=== PATIENT | male | born 1960 | race Caucasian/White ===

== ENCOUNTER 2024-09-29 17:21 | Inpatient (IN) | payer SELFPAY ==
[2024-09-29 17:22] VITALS: BMI 25.8
--- NOTE | 2024-09-29 17:26 | XRR_ITS ---
PROCEDURE INFORMATION: Exam: XR Chest Exam date and time: 09/29/2024 5:51 PM Age: 64 years old Clinical indication: Shortness of breath TECHNIQUE: Imaging protocol: Radiologic exam of the chest. Views: 1 view. COMPARISON: No relevant prior studies available. FINDINGS: Lungs: There is a vague area of increased density projecting over the left lung base partially silhouetting the left heart border. This demonstrates angular margins and could potentially be external to the patient. The right lung is clear. Pleural spaces: There is slight blunting of the left costophrenic angle which could represent a tiny left pleural effusion. Heart/Mediastinum: The cardiomediastinal silhouette appears normal in size. There is partial silhouetting of the left heart border as described above. Bones/joints: Intact. There are degenerative changes involving the thoracic spine. Other findings: None. XR/XR chest 1V portable [id number] IMPRESSION: 1. Vague area of increased density projecting over the left lung base demonstrating angular margins. This could potentially be external to the patient. A left basilar infiltrate or mass can not be excluded. Follow-up PA and lateral radiographs may be helpful for further evaluation. 2. Slight blunting of the left costophrenic angle which could represent a tiny left pleural effusion.
--- NOTE | 2024-09-29 17:27 | ECG_ITS ---
[facility] Test Date: 2024-09-29 Pat Name: Jean Chambers Department: Room: Gender: Male Sausage Wrapper: : 1960 Requested By: Silvia Banks Order Number: [id number] Martin MD: Dinesh Oconnor M.D. Measurements Intervals [place] Rate: 80 P: 67 [place]: 149 QRS: 1 QRSD: 93 T: 67 QT: 345 QTc: 400 Interpretive Statements SINUS RHYTHM WITH SINUS ARRHYTHMIA INCOMPLETE RIGHT BUNDLE BRANCH BLOCK [90+ ms QRS DURATION, TERMINAL R IN V1/V2, 40+ ms S IN I/aVL/V4/V5/V6] MODERATE ST DEPRESSION [0.05+ mV ST DEPRESSION] No previous ECG available for comparison Electronically Signed On 10-01-2024 22:02:29 SEARCH ENGINEER by Dinesh Oconnor M.D. [id number]
--- NOTE | 2024-09-29 17:27 | W.ED.SOB ---
Documented by User: Silvia Villalobos MD 09/30/24 11:57 HPI - SOB/Dyspnea General: Chief Complaint: Shortness of Breath/Dyspnea Stated Complaint: SOB Time Seen by Provider: 09/29/24 17:25 History of Present Illness: HPI Narrative: 64-year-old man with a history of hypertension and tobacco dependence who presents emergency room shortness of breath. He says he does not have a diagnosis of COPD. He says he has been sick for about 2 days now. No fevers. No chest pain. No lower extremity swelling. No altered mental status. EMS reports his O2 sats were in the 70s when they arrived. He is now on 4 L nasal cannula and has not on oxygen at home. He is had increased cough. No abdominal pain. No nausea or vomiting. Related Data Home Medications ?Medication ?Instructions ?Recorded ?Confirmed No Known Home Medications 09/30/24 09/30/24 Allergies Allergy/AdvReac Type Severity Reaction Status Date / Time No Known Allergies Allergy Verified 09/29/24 17:39 Review of Systems Narrative: Constitutional symptoms: Negative except as documented in HPI. Skin symptoms: Negative except as documented in HPI. Eye symptoms: Negative except as documented in HPI. ENMT symptoms: Negative except as documented in HPI. Respiratory symptoms: Negative except as documented in HPI. Cardiovascular symptoms: Negative except as documented in HPI. Gastrointestinal symptoms: Negative except as documented in HPI. Genitourinary symptoms: Negative except as documented in HPI. Musculoskeletal symptoms: Negative except as documented in HPI. Neurologic symptoms: Negative except as documented in HPI. Psychiatric symptoms: Negative except as documented in HPI. Endocrine symptoms: Negative except as documented in HPI. PFSH ED PFSH: Medical History Hypertension Social History Smoking and tobacco/nicotine status: current some day tobacco/nicotine user cigarettes Number of cigarettes per day: >20 Alcohol intake: current Alcohol intake frequency: 3 or more drinks per day Alcohol type: hard liquor Physical Exam Narrative: EXAM NARRATIVE: General: Alert, moderate distress. Skin: Warm, dry. Head: Normocephalic, atraumatic. Neck: Supple, trachea midline. Eye: Extraocular movements are intact. Ears, nose, mouth and throat: Oral mucosa moist. Cardiovascular: Regular rate and rhythm, Normal peripheral perfusion. Respiratory: coarse, scattered wheeze, moderate increased wob. tachypnea, prolonged expiratory phase. breath sounds are equal, Symmetrical chest wall expansion. Gastrointestinal: Soft, Nontender, Non distended, Normal bowel sounds. Musculoskeletal: Normal ROM, no deformity. Neurological: Alert and oriented to person, place, time, and situation, No focal neurological deficit observed. Psychiatric: Cooperative, appropriate mood & affect. Course Vital Signs: Vital signs: Vital Signs Temperature 97.7 F 09/30/24 11:19 Pulse Rate 67 09/30/24 11:19 Respiratory Rate 16 09/30/24 11:19 Blood Pressure 162/87 09/30/24 11:19 Pulse Oximetry 97 09/30/24 11:19 Oxygen Delivery Me thod Nasal Cannula 09/30/24 11:19 Oxygen Flow Rate 4 09/30/24 11:19 MDM - SOB/Dyspnea Medical Decision Making EKG: Time 1728. Rate 80. Normal sinus rhythm, nonspecific ST depression, incomplete right bundle branch block. No ectopy. This was reviewed and interpreted by myself the ER physician at 1731 Patient care transitioned to Dr. Solares at shift change. Lab Data 09/30/24 05:22 09/30/24 05:22 Labs/Radiology: Radiology Impressions Chest X-Ray 09/29/24 17:26 IMPRESSION: 1. Vague area of increased density projecting over the left lung base demonstrating angular margins. This could potentially be external to the patient. A left basilar infiltrate or mass can not be excluded. Follow-up PA and lateral radiographs may be helpful for further evaluation. 2. Slight blunting of the left costophrenic angle which could represent a tiny left pleural effusion. Laboratory Results WBC 11.83 10^3/uL (3.29-11.43) H 09/29/24 17:42 RBC 4.73 10^6/uL (3.85-5.65) 09/29/24 17:42 Hgb 15.60 g/dL (11.27-16.99) 09/29/24 17:42 Hct 45.9 % (37-53) 09/29/24 17:42 MCV 97.0 fl (82-101) 09/29/24 17:42 MCH 33.0 pg (27-33) 09/29/24 17:42 MCHC 34.0 g/dL (30-55) 09/29/24 17:42 RDW 13.0 % (12.1-15.1) 09/29/24 17:42 Plt Count 216 10^3/cmm (157-399) 09/29/24 17:42 MPV 10.3 fL (7.4-10.4) 09/29/24 17:42 Neut % (Auto) 92.7 % 09/29/24 17:42 Lymph % (Auto) 3.2 % 09/29/24 17:42 Evangeline % (Auto) 3.5 % 09/29/24 17:42 Eos % (Auto) 0.0 % 09/29/24 17:42 Baso % (Auto) 0.2 % 09/29/24 17:42 Neut # (Auto) 10.97 10^3/uL (1.8-7.7) H 09/29/24 17:42 Lymph # (Auto) 0.4 10^3/uL (0.8-4.8) L 09/29/24 17:42 Evangeline # (Auto) 0.4 10^3/uL (0.2-0.9) 09/29/24 17:42 Eos # (Auto) 0.0 10^3/uL (0.0-0.8) 09/29/24 17:42 Baso # (Auto) 0.0 10^3/uL (0.0-0.1) 09/29/24 17: Nucleated RBC % (auto) 0 % 09/29/24 17: Nucleated RBCs # 0.0 /100WBC 09/29/24 17:42 Specimen Type Arterial 09/29/24 17:28 Sample Site Radial, left 09/29/24 17:28 ABG pH 7.34 (7.35-7.45) L 09/29/24 17:28 ABG pCO2 47.9 mmHg (35-45) H 09/29/24 17:28 ABG pO2 69.4 mmHg (80.0-100.0) L 09/29/24 17:28 ABG HCO3 25.7 mmol/L (22-26) 09/29/24 17:28 ABG O2 Saturation 95.1 09/29/24 17:28 ABG Base Excess -0.8 mmol/L (-2.0-2.0) 09/29/24 17:28 Willam Test Pos 09/29/24 17:28 A-a O2 Gradient 2.9 mmHg (5-10) L 09/29/24 17:28 Hematocrit 48.8 % (42-52) 09/29/24 17:28 Hgb O2 Saturation 92.5 % (95-100) L 09/29/24 17:28 Carboxyhemoglobin 1.8 %THgb (0.4-20.1) 09/29/24 17:28 Methemoglobin 0.9 % (0.4-1.5) 09/29/24 17:28 Total Hemoglobin 15.9 g/dL (14-18) 09/29/24 17:28 Sodium 136.0 mmol/L (131-143) 09/29/24 17:28 Potassium 4.2 mmol/L (3.5-5.0) 09/29/24 17:28 Glucose 142.0 mg/dL (70-115) H 09/29/24 17:28 Ionized Calcium 1.2 mmol/L (1.1-1.4) 09/29/24 17:28 O2 Delivery Device Nc 09/29/24 17:28 O2 Liters/Min 4.0 % 09/29/24 17:28 Manager Administrative Services ID Walci 09/29/24 17:28 Sodium 135 mmol/L (136-145) L 09/29/24 17:42 Potassium 4.5 mmol/L (3.5-5.1) 09/29/24 17:42 Chloride 96 mmol/L (98-107) L 09/29/24 17:42 Carbon Dioxide 25 mmol/L (22-29) 09/29/24 17:42 Anion Gap 18.5 (5-19) 09/29/24 17:42 BUN 16 mg/dL (8-23) 09/29/24 17:42 Creatinine 1.0 mg/dL (0.7-1.2) 09/29/24 17:42 GFR Calculation 74.8 mL/min (90-130) L 09/29/24 17:42 Glucose 134 mg/dL (65-115) H 09/29/24 17:42 Estimat Average Glucose 100 09/29/24 17:42 Hemoglobin A1c 5.1 % (4.0-6.0) 09/29/24 17:42 Calculated Osmolality 283 mOsm/kg (285-295) L 09/29/24 17:42 Lactic Acid 2.4 mmol/L (0.5-2.2) H 09/29/24 17:42 Calcium 9.6 mg/dL (8.5-10.5) 09/29/24 17:42 Total Bilirubin 0.6 mg/dL (0.15-1.2) 09/29/24 17:42 AST 44 U/L (0-40) H 09/29/24 17:42 ALT 38 U/L (0-41) 09/29/24 17:42 Alkaline Phosphatase 79 U/L (40-130) 09/29/24 17:42 Troponin T Baseline 24 ng/L (0-15) H 09/29/24 17:42 Troponin T 120 Minute 28.68 ng/L (0-15) H 09/29/24 19:53 Delta Troponin T 4.68 ABS# (0-10) 09/29/24 19:53 NT-Pro-B Natriuret Pep 2330 pg/mL (0-125) H 09/29/24 17:42 Total Protein 7.5 g/dL (6.6-8.7) 09/29/24 17:42 Albumin 4.4 g/dL (3.5-5.2) 09/29/24 17:42 Globulin 3.1 g/dL (1.3-4.6) 09/29/24 17:42 Procalcitonin 0.20 ng/mL (0-0.5) 09/29/24 19:53 Coronavirus (PCR) Negative (Negative) 09/29/24 18:03 Influenza A (PCR) Positive (Negative) 09/29/24 18:03 Influenza Type B (PCR) Negative (Negative) 09/29/24 18:03 RSV (PCR) Negative (Negative) 09/29/24 18:03 All radiology interpretation(s) finalized by discharge Discharge Plan Discharge Patient Disposition: Admitted As Inpatient Admit Provider: Eliot Johnson Clinical Impression: Acute hypoxemic respiratory failure, Influenza A Condition: Stable Coding Level of Care Code ED Bridge Attacher for Chg Fwd Documented by User: Jag Solares DO 09/29/24 20:14 HPI - SOB/Dyspnea General: Chief Complaint: Shortness of Breath/Dyspnea Stated Complaint: SOB Time Seen by Provider: 09/29/24 17:25 Related Data Home Medications ?Medication ?Instructions ?Recorded ?Confirmed No Known Home Medications 09/30/24 09/30/24 Allergies Allergy/AdvReac Type Severity Reaction Status Date / Time No Known Allergies Allergy Verified 09/29/24 17:39 PFSH ED PFSH: Medical History Hypertension Social History Smoking and tobacco/nicotine status: current some day tobacco/nicotine user cigarettes Number of cigarettes per day: >20 Alcohol intake: current Alcohol intake frequency: 3 or more drinks per day Alcohol type: hard liquor Course Vital Signs: Vital signs: Vital Signs Temperature 97.7 F 09/30/24 11:19 Pulse Rate 67 09/30/24 11:19 Respiratory Rate 16 09/30/24 11:19 Blood Pressure 162/87 09/30/24 11:19 Pulse Oximetry 97 09/30/24 11:19 Oxygen Delivery Me thod Nasal Cannula 09/30/24 11:19 Oxygen Flow Rate 4 09/30/24 11:19 MDM - SOB/Dyspnea Medical Decision Making EKG: Time 1728. Rate 80. Normal sinus rhythm, nonspecific ST depression, incomplete right bundle branch block. No ectopy. This was reviewed and interpreted by myself the ER physician at 1731 Patient care transitioned to Dr. Solares at shift change. Care transferred over myself at shift change, patient came back influenza A positive, chest x-ray showed increased density in the left lung base possible infiltrate or mass, patient still requiring 4 L of oxygen. Discussed these results with the patient and Dr. Vuong. Will place patient inpatient for further evaluation treatment. Lab Data 09/30/24 05:22 09/30/24 05:22 Labs/Radiology: Radiology Impressions Chest X-Ray 09/29/24 17:26 IMPRESSION: 1. Vague area of increased density projecting over the left lung base demonstrating angular margins. This could potentially be external to the patient. A left basilar infiltrate or mass can not be excluded. Follow-up PA and lateral radiographs may be helpful for further evaluation. 2. Slight blunting of the left costophrenic angle which could represent a tiny left pleural effusion. Laboratory Results WBC 11.83 10^3/uL (3.29-11.43) H 09/29/24 17:42 RBC 4.73 10^6/uL (3.85-5.65) 09/29/24 17:42 Hgb 15.60 g/dL (11.27-16.99) 09/29/24 17:42 Hct 45.9 % (37-53) 09/29/24 17:42 MCV 97.0 fl (82-101) 09/29/24 17:42 MCH 33.0 pg (27-33) 09/29/24 17:42 MCHC 34.0 g/dL (30-55) 09/29/24 17:42 RDW 13.0 % (12.1-15.1) 09/29/24 17:42 Plt Count 216 10^3/cmm (157-399) 09/29/24 17:42 MPV 10.3 fL (7.4-10.4) 09/29/24 17:42 Neut % (Auto) 92.7 % 09/29/24 17:42 Lymph % (Auto) 3.2 % 09/29/24 17:42 Evangeline % (Auto) 3.5 % 09/29/24 17:42 Eos % (Auto) 0.0 % 09/29/24 17:42 Baso % (Auto) 0.2 % 09/29/24 17:42 Neut # (Auto) 10.97 10^3/uL (1.8-7.7) H 09/29/24 17:42 Lymph # (Auto) 0.4 10^3/uL (0.8-4.8) L 09/29/24 17:42 Evangeline # (Auto) 0.4 10^3/uL (0.2-0.9) 09/29/24 17:42 Eos # (Auto) 0.0 10^3/uL (0.0-0.8) 09/29/24 17:42 Baso # (Auto) 0.0 10^3/uL (0.0-0.1) 09/29/24 17:42 Nucleated RBC % (auto) 0 % 09/29/24 17:42 Nucleated RBCs # 0.0 /100WBC 09/29/24 17:42 Specimen Type Arterial 09/29/24 17:28 Sample Site Radial, left 09/29/24 17:28 ABG pH 7.34 (7.35-7.45) L 09/29/24 17: ABG pCO2 47.9 mmHg (35-45) H 09/29/24 17: ABG pO2 69.4 mmHg (80.0-100.0) L 09/29/24 17: ABG HCO3 25.7 mmol/L (22-26) 09/29/24 17: ABG O2 Saturation 95.1 09/29/24 17: ABG Base Excess -0.8 mmol/L (-2.0-2.0) 09/29/24 17:28 Willam Test Pos 09/29/24 17:28 A-a O2 Gradient 2.9 mmHg (5-10) L 09/29/24 17:28 Hematocrit 48.8 % (42-52) 09/29/24 17:28 Hgb O2 Saturation 92.5 % (95-100) L 09/29/24 17:28 Carboxyhemoglobin 1.8 %THgb (0.4-20.1) 09/29/24 17:28 Methemoglobin 0.9 % (0.4-1.5) 09/29/24 17:28 Total Hemoglobin 15.9 g/dL (14-18) 09/29/24 17:28 Sodium 136.0 mmol/L (131-143) 09/29/24 17:28 Potassium 4.2 mmol/L (3.5-5.0) 09/29/24 17:28 Glucose 142.0 mg/dL (70-115) H 09/29/24 17:28 Ionized Calcium 1.2 mmol/L (1.1-1.4) 09/29/24 17: O2 Delivery Device Nc 09/29/24 17:28 O2 Liters/Min 4.0 % 09/29/24 17:28 Manager Administrative Services ID Walci 09/29/24 17:28 Sodium 135 mmol/L (136-145) L 09/29/24 17:42 Potassium 4.5 mmol/L (3.5-5.1) 09/29/24 17:42 Chloride 96 mmol/L (98-107) L 09/29/24 17:42 Carbon Dioxide 25 mmol/L (22-29) 09/29/24 17:42 Anion Gap 18.5 (5-19) 09/29/24 17:42 BUN 16 mg/dL (8-23) 09/29/24 17:42 Creatinine 1.0 mg/dL (0.7-1.2) 09/29/24 17:42 GFR Calculation 74.8 mL/min (90-130) L 09/29/24 17:42 Glucose 134 mg/dL (65-115) H 09/29/24 17:42 Estimat Average Glucose 100 09/29/24 17:42 Hemoglobin A1c 5.1 % (4.0-6.0) 09/29/24 17:42 Calculated Osmolality 283 mOsm/kg (285-295) L 09/29/24 17:42 Lactic Acid 2.4 mmol/L (0.5-2.2) H 09/29/24 17:42 Calcium 9.6 mg/dL (8.5-10.5) 09/29/24 17:42 Total Bilirubin 0.6 mg/dL (0.15-1.2) 09/29/24 17:42 AST 44 U/L (0-40) H 09/29/24 17:42 ALT 38 U/L (0-41) 09/29/24 17:42 Alkaline Phosphatase 79 U/L (40-130) 09/29/24 17:42 Troponin T Baseline 24 ng/L (0-15) H 09/29/24 17:42 Troponin T 120 Minute 28.68 ng/L (0-15) H 09/29/24 19:53 Delta Troponin T 4.68 ABS# (0-10) 09/29/24 19:53 NT-Pro-B Natriuret Pep 2330 pg/mL (0-125) H 09/29/24 17:42 Total Protein 7.5 g/dL (6.6-8.7) 09/29/24 17:42 Albumin 4.4 g/dL (3.5-5.2) 09/29/24 17:42 Globulin 3.1 g/dL (1.3-4.6) 09/29/24 17:42 Procalcitonin 0.20 ng/mL (0-0.5) 09/29/24 19:53 Coronavirus (PCR) Negative (Negative) 09/29/24 18:03 Influenza A (PCR) Positive (Negative) 09/29/24 18:03 Influenza Type B (PCR) Negative (Negative) 09/29/24 18:03 RSV (PCR) Negative (Negative) 09/29/24 18:03 Discharge Plan Discharge Patient Disposition: Admitted As Inpatient Admit Provider: Eliot Johnson Clinical Impression: Acute hypoxemic respiratory failure, Influenza A Condition: Stable Coding Level of Care Code ED Bridge Attacher for Hannah Samaniego
[2024-09-29 17:30] VITALS: BP 146/84; PULSE 94; RESP 28; TEMP 37.3; O2SAT 94
[2024-09-29 17:32] VITALS: PULSE 78; RESP 20; O2SAT 93
[2024-09-29 17:39] LABS: ABG PCO2 47.9 mmHg (35-45); ABG PH Result 7.34 (7.35-7.45); Alveolar-Arterial Oxygen Gradi 2.9 mmHg (5-10); Arterial Blood Gas Hematocrit 48.8 % (42-52); Base Excess ABG -0.8 mmol/L (-2.0-2.0); Blood Gas Allen Test Pos; Blood Gas Sample Type Arterial; Carboxyhemoglobin 1.8 %THgb (0.4-20.1); HCO3 ABG 25.7 mmol/L (22-26); HGB O2 Sat 92.5 % (95-100); Ionized Calcium Level - ABG 1.2 mmol/L (1.1-1.4); Methemoglobin 0.9 % (0.4-1.5); Oxygen Saturation ABG 95.1; PO2 ABG 69.4 mmHg (80.0-100.0); Potassium Level - ABG 4.2 mmol/L (3.5-5.0); Total Hemoglobin 15.9 g/dL (14-18)
[2024-09-29 17:40] LABS: Blood Gas Operator Identificat WALCI; Blood Gas Sample Site Radial, left; Oxygen Device NC
[2024-09-29] MEDS: ipratropium-albuterol 3 mL Neb INHALATION (17:45)
[2024-09-29] MEDS: albuterol 2.5 mg/3 mL Neb INHALATION (17:45)
[2024-09-29 17:48] VITALS: PULSE 76
[2024-09-29 17:53] LABS: Basophils % 0.2 %; Hematocrit 45.9 % (37-53); Lymphocytes # 0.4 10^3/uL (0.8-4.8); Lymphocytes % 3.2 %; Mean Platelet Volume 10.3 fL (7.4-10.4); Monocytes # 0.4 10^3/uL (0.2-0.9); Monocytes % 3.5 %; Neutrophils # 10.97 10^3/uL (1.8-7.7); Neutrophils % 92.7 %; Nucleated Red Blood Cells % 0 %; Platelet Count 216 10^3/cmm (157-399); Red Blood Count 4.73 10^6/uL (3.85-5.65); White Blood Count 11.83 10^3/uL (3.29-11.43)
[2024-09-29] MEDS: methylPREDNISolone sod succ 125 mg/2 mL INJ IVP (17:55)
[2024-09-29 18:11] LABS: Troponin(5th) Baseline 24 ng/L (0-15)
[2024-09-29 18:15] LABS: Lactic Sepsis W/Reflex 2.4 mmol/L (0.5-2.2)
[2024-09-29 18:29] LABS: Alanine Aminotransferase 38 U/L (0-41); Albumin Level 4.4 g/dL (3.5-5.2); Alkaline Phosphatase 79 U/L (40-130); Anion Gap 18.5 (5-19); Aspartate Amino Transferase 44 U/L (0-40); Blood Urea Nitrogen 16 mg/dL (8-23); Calcium 9.6 mg/dL (8.5-10.5); Carbon Dioxide 25 mmol/L (22-29); Chloride 96 mmol/L (98-107); Creatinine Clr Calc Pharmacy 73.8812; Globulin 3.1 g/dL (1.3-4.6); Glomerular Filtration Rate 74.8 mL/min (90-130); Glucose 134 mg/dL (65-115); NT Pro B Type Natriuretic Pept 2330 pg/mL (0-125); Osmolality Calculated 283 mOsm/kg (285-295); Potassium 4.5 mmol/L (3.5-5.1); Sodium 135 mmol/L (136-145); Total Bilirubin 0.6 mg/dL (0.15-1.2); Total Protein 7.5 g/dL (6.6-8.7)
[2024-09-29 18:30] VITALS: BP 133/67; PULSE 90; RESP 35; O2SAT 91
[2024-09-29 18:53] LABS: Influenza A POSITIVE (Negative); Influenza B NEGATIVE (Negative); Respiratory Syncytial Virus Ce NEGATIVE (Negative); SARS-CoV-2 PCR NEGATIVE (Negative)
[2024-09-29 19:00] VITALS: PULSE 92; O2SAT 91
[2024-09-29 19:36] LABS: Reflex Lactate Order REFLEX LACTIC ORDERD
[2024-09-29 20:26] LABS: Troponin 5 2HR 28.68 ng/L (0-15); Troponin 5 2HR Delta 4.68 ABS# (0-10)
--- NOTE | 2024-09-29 20:39 | ECG_ITS ---
[email or web address] Test Date: 2024-09-29 Pat Name: Jean Chambers Department: Room: Gender: Male Chief Data Officer: : 1960 Requested By: Silvia Banks Order Number: [id number] Martin MD: Dinesh Oconnor M.D. Measurements Intervals [place] Rate: 83 P: 24 MS: 134 QRS: 1 QRSD: 85 T: 51 QT: 347 QTc: 409 Interpretive Statements SINUS RHYTHM Compared to ECG 09/29/2024 17:28:38 Sinus arrhythmia no longer present Incomplete right bundle-branch block no longer present ST (T wave) deviation no longer present Electronically Signed On 10-01-2024 22:20:36 CASUALTY UNDERWRITER by Dinesh Oconnor M.D. [id number] [id number]
[2024-09-29] MEDS: piperacillin-tazobactam 3.375 GM in sodium chloride 0.9% (plus) 50 ML IV (20:43)
[2024-09-29] MEDS: ibuprofen 800 mg tablet PO (21:01)
--- NOTE | 2024-09-29 21:05 | P.HP_ITS ---
Providers/Chief Complaint 2 Chief Complaint: SOB History of Present Illness Jean Chambers is a 64 year old male without significant past medical history, does not follow-up with any PCP, takes atenolol for hypertension presented with chief complaint of worsening shortness of breath. Patient is stating that for last 2 weeks he has been extremely short of breath lethargic and fatigued, he does not use oxygen at baseline, smokes 2 packs per per day, drinks 3-4 shots of fireball every day, history of alcohol withdrawal, endorsing subjective fever no active chest pain, productive cough, endorsing diarrhea. Presented to the hospital for worsening of symptoms. In the ER patient is requiring 4 L. He has been diagnosed with influenza A, he has increased work of breathing. Chest x-ray consistent with possible left-sided infiltrate versus atelectasis. Procalcitonin unremarkable, he is afebrile. His BNP was high requested echo. Clinically patient does not look fluid overloaded. Lactic acid improved with gentle hydration of fluid. Review of Systems 2 Const: Reports: fever(s) and chills Eyes: Denies: change in vision ENMT: Denies: throat pain Card: Denies: chest pain Resp: Reports: dyspnea GI: Reports: nausea and diarrhea Medications/Allergies Allergies Allergy/AdvReac Type Severity Reaction Status Date / Time No Known Allergies Allergy Verified 09/29/24 17:39 PFSH Acute 2 PFSH: Medical History Hypertension Social History Smoking and tobacco/nicotine status: current some day tobacco/nicotine user cigarettes Number of cigarettes per day: >20 Alcohol intake: current Alcohol intake frequency: 3 or more drinks per day Alcohol type: hard liquor Vitals/I&O/Wt Last Vital Signs Temp 99.2 F 09/29/24 17:30 Pulse 92 09/29/24 19:00 Resp 35 H 09/29/24 18:30 BP 133/67 09/29/24 18:30 Pulse Ox 91 09/29/24 19:00 O2 Del Method Nasal Cannula 09/29/24 19:00 O2 Flow Rate 4 09/29/24 19:00 Weight last 48 hrs Weight 77.111 kg Physical Exam 2 Narrative: Patient currently on 4 L nasal cannula Normotensive Clinically does not look fluid overloaded Mild rhonchi bilaterally Increased work of breathing Pleasant and cooperative No sign of meningitis or stroke S1, S2 Abdomen distended but soft Lower extremity no significant edema Cap refill less than 3 seconds No active confusion Blood pressure stable Data 09/29/24 17:42 09/29/24 17:42 Micro: Microbiology 09/29/24 17:40 Blood Culture - Preliminary Blood SPECIMEN COLLECTED 09/29/24 17:42 Blood Culture - Preliminary Blood SPECIMEN COLLECTED A&P Assessment and plan (1) Influenza A: (2) Acute hypoxemic respiratory failure: (3) Sepsis: Plan Sepsis with acute hypoxia related to influenza A Clinically looks euvolemic Start Tamiflu DuoNeb treatment along budesonide Procalcitonin is not high hold off on antibiotics for now Patient was given septic bolus, sepsis criteria met with tachypnea tachycardia high lactic acid, endorgan damage requiring oxygen: High lactic acid likely secondary to increased work of breathing Chest x-ray does not show any infiltrate, procalcitonin unremarkable Requested echo for high BNP Conservative management for fluid Currently requiring 4 L of nasal cannula, wean oxygen before discharge, patient will need home oxygen evaluation Afebrile Troponin trending down, patient not complaining active chest pain, EKG unremarkable Full code Cardiac diet DVT prophylaxisLovenox PDMP PDMP Reviewed: Not Reviewed Attestations 2 Medical Necessity Statement*: Anticipating more than 2 midnights in the hospital for acute hypoxia related to concerns of influenza A Diagnoses Influenza A J10.1 Acute hypoxemic respiratory failure J96.01 Sepsis A41.9
--- NOTE | 2024-09-29 21:06 | USCV_ITS ---
Jean Chambers Age: 64 Gender: M : 1960 Exam Date: 09/29/2024 21:24 Ordering Phys: Eliot Johnson MD Technologist: PIETRO Exam Location: [facility] [place] Indication: chf History of HTN, tobacco addiction, SOB, presenting hypoxic in the 70s. BP: 133 / 67 HR: 78 Rhythm: Sinus Technical Quality: Adequate MEASUREMENTS (Male / Female) Normal Values 2D ECHO LV Diastolic Diameter PLAX 3.7 cm 4.2 - 5.9 / 3.9 - 5.3 cm IVS Diastolic Thickness 1.4 cm 0.6 - 1.0 / 0.6 - 0.9 cm IVS Systolic Thickness 1.5 cm LVPW Diastolic Thickness 1.5 cm 0.6 - 1.0 / 0.6 - 0.9 cm LVPW Systolic Thickness 1.5 cm LVOT Diameter 1.7 cm LV Ejection Fraction 2D Teich 60.7 % LV Ejection Fraction MOD 4C 60.5 % LV Ejection Fraction MOD 2C 66.3 % LV Ejection Fraction 2C AL 68.5 % LA Diameter 3.0 cm Aorta at Sinotubular Diameter 2.7 cm IVC Diameter 1.6 cm M-MODE LA Ao Ratio MM 1.0 AV Cusp Separation MM 1.8 cm DOPPLER AV Peak Velocity 140.0 cm/s LVOT Peak Velocity 120.0 cm/s AV Area Cont Eq vti 2.5 cm squared AV Area Cont Eq pk 1.9 cm squared MV Peak Velocity 88.0 cm/s MV Area PHT 3.4 cm squared Mitral E to A Ratio 0.8 TV Peak Velocity 295.0 cm/s TR Peak Velocity 299.0 cm/s TR Peak Gradient 35.8 mmHg TV Peak E Velocity 49.0 cm/s PV Peak Velocity 107.0 cm/s FINDINGS Left Ventricle Left ventricle is normal in size. LV systolic function is normal with EF of 60- 65%. No regional wall motion abnormalities are seen. Grade 1 diastolic dysfunction Right Ventricle Normal in size and function Right Atrium Normal in size Left Atrium Normal in size Mitral Valve Structurally normal mitral valve. Mild mitral regurgitation. Aortic Valve Aortic valve is thickened. No significant stenosis or regurgitation. Tricuspid Valve Mild tricuspid regurgitation. RVSP is 35-40. This is consistent with mild pulmonary hypertension. Pulmonic Valve Not well visualized Pericardium Normal Aorta Normal in size IVC Appears to be normal CONCLUSIONS LV systolic function is normal with EF of 60-65% Grade 1 diastolic dysfunction Mild mitral regurgitation Mild tricuspid regurgitation Mild pulmonary hypertension No comparison studies are available. Dinesh Oconnor MD (Electronically Signed) Final Date: 30 September 2024 09:58 S
[2024-09-29 21:30] VITALS: BP 123/82; PULSE 81; O2SAT 93
[2024-09-29 21:39] LABS: Lactic Acid level (Lactate) 2.1 mmol/L (0.5-2.2)
[2024-09-29] MEDS: enoxaparin 40 mg/0.4 mL Syringe SUBCUT (21:46)
[2024-09-29] MEDS: FUROsemide 10 mg/mL SDV 2mL 20 MG IVP (21:46)
[2024-09-29 21:48] LABS: Estmated Average Glucose 100; Hemoglobin A1C 5.1 % (4.0-6.0)
[2024-09-29] MEDS: thiamine 100 mg/mL 2mL SDV IM (23:18)
--- NOTE | 2024-09-29 23:27 | ECG_ITS ---
[facility] Date: 2024-09[facility]30 Pat Name: Jean Chambers Department: Room: 256 Gender: Male Research Project Coordinator: : 1960 Requested By: Silvia Banks Order Number: [id number] Martin MD: Dinesh Oconnor M.D. Measurements Intervals [place] Rate: 76 P: 34 DE: 135 QRS: 3 QRSD: 85 T: 34 QT: 384 QTc: 433 Interpretive Statements SINUS RHYTHM WITH SINUS ARRHYTHMIA Compared to ECG 09/29/2024 20:39:57 No significant changes Electronically Signed On 10-01-2024 22:20:24 RENTAL SALES AGENT by Dinesh Oconnor M.D. [id number] [id number]
--- NOTE | 2024-09-29 23:52 | PC.NURSE ---
Pts cigarettes, leather scrubber, vape, and knife locked up in xis with pts permission.
[2024-09-30] VITALS (13 sets, daily range): BP systolic 112–162; BP diastolic 72–87; PULSE 65–84; RESP 16–24; TEMP 36.3–37.1; O2SAT 91–97
[2024-09-30 05:33] LABS: Hematocrit 44.7 % (37-53); Lymphocytes # 0.6 10^3/uL (0.8-4.8); Lymphocytes % 7.7 %; Mean Corpuscular HGB Conc 33.6 g/dL (30-55); Mean Corpuscular Hemoglobin 33.3 pg (27-33); Mean Corpuscular Volume 99.3 fl (82-101); Mean Platelet Volume 10.1 fL (7.4-10.4); Monocytes # 0.4 10^3/uL (0.2-0.9); Neutrophils # 7.15 10^3/uL (1.8-7.7); Neutrophils % 86.8 %; Nucleated Red Blood Cells % 0 %; Platelet Count 165 10^3/cmm (157-399); Red Cell Distribution Width 13.1 % (12.1-15.1); White Blood Count 8.23 10^3/uL (3.29-11.43)
[2024-09-30 05:55] LABS: Anion Gap 15.7 (5-19); Blood Urea Nitrogen 22 mg/dL (8-23); C Reactive Protein 63.5 mg/L (0.0-4.9); Calcium 8.9 mg/dL (8.5-10.5); Carbon Dioxide 25 mmol/L (22-29); Chloride 102 mmol/L (98-107); Creatinine Clr Calc Pharmacy 81.1579; Glomerular Filtration Rate 84.4 mL/min (90-130); Glucose 133 mg/dL (65-115); Magnesium 2.2 mg/dL (1.7-2.3); Osmolality Calculated 291 mOsm/kg (285-295); Phosphorus 3.2 mg/dL (2.5-4.5); Potassium 4.7 mmol/L (3.5-5.1); Sodium 138 mmol/L (136-145)
[2024-09-30] MEDS: budesonide 0.5 mg/2 mL Neb INHALATION ×2 (08:10→19:51)
[2024-09-30] MEDS: ipratropium-albuterol 3 mL Neb INHALATION ×3 (08:11→19:51)
[2024-09-30] MEDS: folic acid 1 mg Tablet PO (08:24)
[2024-09-30] MEDS: thiamine 100 mg Tablet PO (08:24)
[2024-09-30] MEDS: nicotine 21 mg Patch 1 PATCH TRANSDERMA (08:24)
[2024-09-30] MEDS: oseltamivir phosphate 75 mg Capsule PO ×2 (08:24→17:04)
[2024-09-30] MEDS: multivitamin therapeutic Tablet 1 TAB PO (08:25)
--- NOTE | 2024-09-30 08:58 | PC.CHAP ---
Pastoral Care Encounter/Spiritual Assessment Type of Contact [] Declined port warden visit [] Patient/Family/Request visit [] Outpatient visit [] Follow-up visit [] Physician referral [] Code/Alert [] Routine visit [] Staff referral [] Actively dying [] Patient sleeping [] Family support [] [] Out of room [] Palliative care [] [] Receiving care in room [] Pre-surgical visit [] Trauma [] Long length of stay [] ICU visit [x] Other:Contact precautions. No visit. Relational/Emotional Strength [] Patient feels connected with others/family/visitors/staff [] Distress [] Loneliness/isolation [] Abandonment Spirituality of Patient [] Person of Carla [] Attends Caodaism of their Carla [] Believes in Prayer [] Reads Bible or Quaker materials [] There are Spiritual issues to be addressed Glass Blower Helper Interventions [] Prayer [] Active listening [] Non-anxious presence [] Spiritual/emotional support [] Crisis/trauma care [] Spiritual counseling [] Bereavement support [] Provided bereavement packet [] Provided Bible/devotional materials [] Provided toy/stuffed animal, coloring book to patient or family member [] Provided Communion [] Anointing/Braxton [] Salvation [] Completed spiritual assessment [] Other: Impact on Illness or Injury [] Angry [] Fearful [] Anxious [] Often cries [] Exhaustion [] Unable to work [] Unable to attend yarsanism [] Unable to walk/stand [] Unable to read [] Unable to drive [] Unable to eat/drink [] Unable to sleep [] Unable to be with family [] Patient intubated [] Other: Summary Time spent with patient
--- NOTE | 2024-09-30 12:42 | US_ITS ---
WS: [id number] RIGHT UPPER QUADRANT ULTRASOUND HISTORY: assess for cirrhosis COMPARISON: None available. Liver: 13.8 cm in length. Normal size liver and echogenicity. No bile duct dilatation or mass. Portal Vein: Normal hepatopetal flow with monophasic waveform. Gallbladder: Gallbladder is contracted. No stones identified. Contraction is probably due to nonfasting state. CBD: 0.3 cm Pancreas: Obscured by bowel gas. Right kidney: 10.8 cm in length. Normal size and echogenicity. No hydronephrosis or mass. Aorta and IVC: Unremarkable abdominal aorta and IVC. No ascites. US/US liver [id number] IMPRESSION: 1. Unremarkable liver. By ultrasound no evidence for cirrhosis. 2. Contracted gallbladder. Probably due to nonfasting state.
[2024-09-30 13:35] LABS: Hepatitis A Antibody IgM Non-Reactive (Nonreactive); Hepatitis B Core AB, Total Non-Reactive (Nonreactive); Hepatitis B Surface AB < 3.5 (11.5-1000); Hepatitis B Surface Antigen Non-Reactive (Nonreactive); Hepatitis C Virus Antibody Non-Reactive (Nonreactive)
[2024-09-30] MEDS: LORazepam 2 mg/mL INJ 1 mL IVP ×3 (13:56→19:55)
--- NOTE | 2024-09-30 14:30 | PM.PN ---
Subjective Subjective: Patient is currently withdrawing from alcohol. He is alert awake, is shaking, has tremors, sweating. Currently getting nebulized. States that he has never previously noted to be on oxygen. Medications: Reviewed: Yes Vitals/I&O/Wt Last Vital Signs Temp 97.7 F 09/30/24 11:19 Pulse 75 09/30/24 13:50 Resp 20 H 09/30/24 13:50 BP 162/87 09/30/24 11:19 Pulse Ox 96 09/30/24 13:50 O2 Del Method Nasal Cannula 09/30/24 13:50 O2 Flow Rate 3 09/30/24 13:50 09/29/24 09/30/24 09/30/24 22:59 06:59 14:59 Intake Total 2051 250 / 2302 180 / 180 Output Total 500 / 500 Balance 2051 -250 / 1802 180 / 180 Weight last 48 hrs Weight 75.07 kg Weight 77.111 kg Weight 77.111 kg Physical Exam Narrative: General: No acute distress, AO x3 withdrawing from alcohol HEENT: PERRLA, pupils bilaterally equal and reactive, pallors not present Chest: Normal vesicular breath sounds, no added sounds, equal good air entry bilaterally CVS: S1-S2 regular, no murmurs, no tachycardia, no gallops, no rubs Abdomen: Soft, nontender, no organomegaly, bowel sounds present Neuro: No focal deficits, no facial deformity, AO x3, power 5/5 in all limbs Data 09/30/24 05:22 09/30/24 05:22 Micro: Microbiology 09/29/24 17:40 Blood Culture - Preliminary Blood SPECIMEN COLLECTED 09/29/24 17:42 Blood Culture - Preliminary Blood SPECIMEN COLLECTED A&P Assessment and plan (1) Influenza A: (2) Acute hypoxemic respiratory failure: (3) Sepsis: Plan Sepsis with acute hypoxia related to influenza A Clinically looks euvolemic Start Tamiflu DuoNeb treatment along budesonide Procalcitonin is not high hold off on antibiotics for now Patient was given septic bolus, sepsis criteria met with tachypnea tachycardia high lactic acid, endorgan damage requiring oxygen: High lactic acid likely secondary to increased work of breathing Chest x-ray does not show any infiltrate, procalcitonin unremarkable Requested echo for high BNP Conservative management for fluid Currently requiring 4 L of nasal cannula, wean oxygen before discharge, patient will need home oxygen evaluation Afebrile Troponin trending down, patient not complaining active chest pain, EKG unremarkable Full code Cardiac diet DVT prophylaxisLovenox September 30, 2024. 64-year-old male with history of chronic alcohol abuse, last drink on day of admission currently admitted to the hospital for influenza A infection and alcohol withdrawal.At the time of this assessment patient was noted to be in amairani alcohol withdrawal. He had several tremors affecting bilateral upper and lower extremities, reported feeling anxious, was sweating. He has been given Ativan per CIWA protocol. Additionally will add Librium as a standing dose. Alcohol level was not checked upon admission. However he reports his last drink was prior to hospital arrival. Mildly deranged LFTs, suspect related to alcohol liver disease. Will obtain ultrasound of the liver to assess for any underlying cirrhosis. Echocardiogram showing LV systolic function with a EF of 60 to 65%, grade 1 diastolic dysfunction, mild MR, mild pulmonary hypertension. Add Lasix 20 mg IV every 12 hours. Check hepatitis panel for chronic hep B or C Continue Tamiflu 75 mg twice daily for influenza A infection. Currently no signs of consolidation, holding off on antibiotics. Supportive management for now. Blood cultures pending. Continue thiamine 100 mg p.o. daily. Check D dimer to screen for PE as CXR does not justify new 02 requirement of 4lpm PDMP PDMP Reviewed: Not Reviewed Attestations Medical Necessity Statement*: alcohol withdrawal, high CIWA scores, new hypoxia Coding Level of Care Code Acute Code for [facility] Diagnoses Influenza A J10.1 Acute hypoxemic respiratory failure J96.01 Sepsis A41.9
[2024-09-30] MEDS: FUROsemide 10 mg/mL SDV 2mL 20 MG IVP (14:45)
[2024-09-30] MEDS: chlordiazePOXIDE 25 mg Capsule PO ×2 (14:45→19:55)
[2024-09-30 16:10] LABS: D Dimer 1.58 ug/mLFEU (0-0.59)
[2024-09-30 16:14] LABS: Ammonia 47 umol/L (16-60)
[2024-09-30] MEDS: acetaminophen 500 mg Tablet PO (19:55)
[2024-09-30] MEDS: enoxaparin 40 mg/0.4 mL Syringe SUBCUT (21:28)
[2024-10-01] VITALS (36 sets, daily range): BP systolic 96–156; BP diastolic 61–91; PULSE 75–133; RESP 22–48; TEMP 36.4–39.5; O2SAT 89–96
[2024-10-01] MEDS: LORazepam 2 mg/mL INJ 1 mL IVP ×5 (00:09→16:41)
[2024-10-01] MEDS: acetaminophen 500 mg Tablet PO ×2 (00:56→07:38)
[2024-10-01] MEDS: chlordiazePOXIDE 25 mg Capsule PO ×2 (01:56→07:39)
[2024-10-01] MEDS: ipratropium-albuterol 3 mL Neb INHALATION ×2 (02:15→07:46)
[2024-10-01 05:41] LABS: Basophils % 0.2 %; Eosinophils % 0.1 %; Hematocrit 42.7 % (37-53); Lymphocytes # 0.9 10^3/uL (0.8-4.8); Lymphocytes % 10.6 %; Mean Corpuscular HGB Conc 33.3 g/dL (30-55); Mean Corpuscular Hemoglobin 32.8 pg (27-33); Mean Corpuscular Volume 98.6 fl (82-101); Mean Platelet Volume 10.7 fL (7.4-10.4); Monocytes # 0.6 10^3/uL (0.2-0.9); Monocytes % 7.1 %; Neutrophils # 7.01 10^3/uL (1.8-7.7); Neutrophils % 81.7 %; Nucleated Red Blood Cells % 0 %; Platelet Count 151 10^3/cmm (157-399); Red Blood Count 4.33 10^6/uL (3.85-5.65); Red Cell Distribution Width 13.2 % (12.1-15.1); White Blood Count 8.59 10^3/uL (3.29-11.43)
[2024-10-01 06:00] LABS: Alanine Aminotransferase 26 U/L (0-41); Albumin Level 3.3 g/dL (3.5-5.2); Alkaline Phosphatase 64 U/L (40-130); Anion Gap 16.7 (5-19); Aspartate Amino Transferase 35 U/L (0-40); Blood Urea Nitrogen 31 mg/dL (8-23); Calcium 8.7 mg/dL (8.5-10.5); Carbon Dioxide 27 mmol/L (22-29); Chloride 99 mmol/L (98-107); Creatinine Clr Calc Pharmacy 90.3936; Globulin 3.1 g/dL (1.3-4.6); Glomerular Filtration Rate 96.7 mL/min (90-130); Glucose 91 mg/dL (65-115); Osmolality Calculated 294 mOsm/kg (285-295); Potassium 3.7 mmol/L (3.5-5.1); Sodium 139 mmol/L (136-145); Total Bilirubin 0.5 mg/dL (0.15-1.2); Total Protein 6.4 g/dL (6.6-8.7)
[2024-10-01] MEDS: nicotine 21 mg Patch 1 PATCH TRANSDERMA (07:38)
[2024-10-01] MEDS: folic acid 1 mg Tablet PO (07:39)
[2024-10-01] MEDS: multivitamin therapeutic Tablet 1 TAB PO (07:39)
[2024-10-01] MEDS: thiamine 100 mg Tablet PO (07:39)
[2024-10-01] MEDS: oseltamivir phosphate 75 mg Capsule PO ×2 (07:39→17:18)
[2024-10-01] MEDS: budesonide 0.5 mg/2 mL Neb INHALATION ×2 (07:46→20:07)
--- NOTE | 2024-10-01 12:53 | XR_ITS ---
WS: [id number] Portable AP upright chest, 10/01/2024 Clinical Data: pneumonia Comparison: Portable chest, 09/29/2024 Findings: No nodules, masses or effusions are seen. The heart is normal. The pulmonary vascularity is not increased. No pneumonia or pneumothorax is seen. The diaphragms are flattened. There are monitor leads on the chest wall. XR/XR chest 1V portable [id number] Impression: Hyperinflation.
[2024-10-01] MEDS: chlordiazePOXIDE 25 mg Capsule 50 MG PO ×2 (13:13→18:10)
[2024-10-01] MEDS: cefTRIAXone 1,000 mg SDV 1000 MG IVP (13:13)
--- NOTE | 2024-10-01 13:18 | PC.NURSE ---
This nurse speaks with Dr. Yee. Pt's heartrate remains 120-130. Tremors persist, however slightly improved, despite pt receiving Ativan 3 times already today. Temp 100.7. Per Dr. Yee...repeat CXR, change RT tx to Xopenex, will start Rocephin and increase Librium.
[2024-10-01] MEDS: ipratropium 0.5 mg/2.5 mL Neb INHALATION ×2 (13:33→20:07)
[2024-10-01] MEDS: levalbuterol 0.63 mg/3 mL Neb INHALATION ×2 (13:33→20:07)
--- NOTE | 2024-10-01 14:10 | CT_ITS ---
WS: [id number] CT CHEST ANGIOGRAPHY WITH REFORMATS HISTORY: assess for PE TECHNIQUE: Contiguous axial images are obtained through the chest during arterial injection of intravenous contrast. Images are reconstructed to evaluate the pulmonary arteries. MIP imaging also reviewed. All CT scans at [facility] use at least one of these dose optimization techniques: automated exposure control; mA and/or kV adjustment per patient size (includes targeted exams where dose is matched to clinical indication); or iterative reconstruction. CONTRAST: Omnipaque 350; 100 mL IV. DLP: 343.15 mGy.cm COMPARISON: None available. Good opacification of the pulmonary arteries. No filling defects identified. Normal size pulmonary artery. Mild atherosclerosis aorta. Normal size aorta. No RIGHT heart strain. Normal size heart. No pericardial or pleural effusions. Low lung volumes due to poor inspiration. Subpleural atelectasis central LEFT lung. Linear atelectasis anterior LEFT upper lobe. No pneumonia. No mediastinal or hilar adenopathy. Mild bilateral gynecomastia. Small hiatal hernia. No adrenal mass. Visualized liver is normal. CT/CT angio chest PE protcl [id number] IMPRESSION: 1. No pulmonary embolism. 2. No pneumonia. 3. No mediastinal or hilar adenopathy.
--- NOTE | 2024-10-01 14:10 | ECG_ITS ---
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 Measurements Intervals [place] Rate: 131 P: -2 AK: 125 QRS: -20 QRSD: 82 T: 55 QT: 288 QTc: 426 Interpretive Statements SINUS TACHYCARDIA MINIMAL VOLTAGE CRITERIA FOR LVH, CONSIDER NORMAL VARIANT [MEETS CRITERIA IN ONE OF: R(aVL), S(V1), R(V5), R(V5/V6)+S(V1)] NONSPECIFIC ST & T-WAVE ABNORMALITY Compared to ECG 09/30/2024 00:01:16 T-wave abnormality now present Sinus rhythm no longer present Sinus arrhythmia no longer present Electronically Signed On 10-01-2024 22:14:46 AVIONICS SAFETY INSPECTOR by Dinesh Oconnor M.D. [email or web address]
[2024-10-01 14:18] LABS: ABG PCO2 38.2 mmHg (35-45); ABG PH Result 7.48 (7.35-7.45); Alveolar-Arterial Oxygen Gradi 6.4 mmHg (5-10); Arterial Blood Gas Hematocrit 47.1 % (42-52); Blood Gas Allen Test Pos; Blood Gas Operator Identificat WALCI; Blood Gas Sample Site Radial, right; Blood Gas Sample Type Arterial; Carboxyhemoglobin 1.4 %THgb (0.4-20.1); HCO3 ABG 28.7 mmol/L (22-26); HGB O2 Sat 89.2 % (95-100); Ionized Calcium Level - ABG 1.2 mmol/L (1.1-1.4); Methemoglobin 0.9 % (0.4-1.5); Oxygen Device NC; Oxygen Saturation ABG 91.3; PO2 ABG 52.8 mmHg (80.0-100.0); Potassium Level - ABG 3.4 mmol/L (3.5-5.0); Total Hemoglobin 15.4 g/dL (14-18)
--- NOTE | 2024-10-01 14:19 | PC.NURSE ---
Jenniffer (daughter) advised that pt will be transferred to ICU for precedex gtt. She verbalizes understanding.
--- NOTE | 2024-10-01 14:37 | PC.NURSE ---
Pt temp now 103.1. Dr. Yee advised. New orders for IV tylenol and to ICU stat
[2024-10-01] MEDS: FUROsemide 10 mg/mL SDV 2mL 20 MG IVP (14:41)
[2024-10-01] MEDS: acetaminophen 1,000 MG/100 ML PIGGYBACK 400 MG IV (14:41)
[2024-10-01] MEDS: iohexol 350 mg/mL 500 mL Btl (per mL) IV (15:47)
--- NOTE | 2024-10-01 16:04 | PC.NURSE ---
Addendum entered by Milagros Ridley RN 10/01/24 16:17: Bed alarm set. Original Note: Pt arrived to ICU from [facility]. Pt alert and somewhat oriented. SInus tach noted. Temp 99.2. He is slightly diaphoretic. CIWA completed. Pt stated his stomach hurts It seals . He stats he does have nausea. He is requesting food.
--- NOTE | 2024-10-01 16:25 | P.PN_ITS ---
Subjective 2 Subjective: Patient is clinically worse today. Exhibiting signs of delirium tremens. He is confused, disoriented. He has extensive tremors. Tachycardic with heart rate 130s in sinus rhythm. He is being moved to the ICU to start Precedex infusion. Medications: Reviewed: Yes Vitals/I&O/Wt Last Vital Signs Temp 99.2 F 10/01/24 16:12 Pulse 124 H 10/01/24 16:12 Resp 36 H 10/01/24 16:12 BP 112/63 10/01/24 16:12 Pulse Ox 94 10/01/24 16:12 O2 Del Method Nasal Cannula 10/01/24 16:12 O2 Flow Rate 2 10/01/24 16:12 10/01/24 10/01/24 10/01/24 06:59 14:59 22:59 Intake Total 420 / 660 60 / 60 100 / 160 Output Total 200 / 700 400 / 400 Balance 220 / -40 60 / 60 -300 / -240 Weight last 48 hrs Weight 73.301 kg Weight 75.07 kg Weight 77.111 kg Weight 77.111 kg Physical Exam 2 Narrative: General: confused, disoriented, HEENT: PERRLA, pupils bilaterally equal and reactive, pallors not present Chest: Coarse crackles to auscultation bilaterally CVS: S1-S2 regular, no murmurs, no tachycardia, no gallops, no rubs Abdomen: Soft, nontender, no organomegaly, bowel sounds present Neuro: No focal deficits, moves all extremities Data 10/01/24 05:03 10/01/24 05:03 Micro: Microbiology 09/29/24 17:40 Blood Culture - Preliminary Blood NEGATIVE TO DATE 09/29/24 17:42 Blood Culture - Preliminary Blood NEGATIVE TO DATE A&P Assessment and plan (1) Influenza A: (2) Acute hypoxemic respiratory failure: (3) Sepsis: (4) Delirium tremens: Plan Sepsis with acute hypoxia related to influenza A Clinically looks euvolemic Start Tamiflu DuoNeb treatment along budesonide Procalcitonin is not high hold off on antibiotics for now Patient was given septic bolus, sepsis criteria met with tachypnea tachycardia high lactic acid, endorgan damage requiring oxygen: High lactic acid likely secondary to increased work of breathing Chest x-ray does not show any infiltrate, procalcitonin unremarkable Requested echo for high BNP Conservative management for fluid Currently requiring 4 L of nasal cannula, wean oxygen before discharge, patient will need home oxygen evaluation Afebrile Troponin trending down, patient not complaining active chest pain, EKG unremarkable Full code Cardiac diet DVT prophylaxisLovenox September 30, 2024. 64-year-old male with history of chronic alcohol abuse, last drink on day of admission currently admitted to the hospital for influenza A infection and alcohol withdrawal.At the time of this assessment patient was noted to be in amairani alcohol withdrawal. He had several tremors affecting bilateral upper and lower extremities, reported feeling anxious, was sweating. He has been given Ativan per [facility] protocol. Additionally will add Librium as a standing dose. Alcohol level was not checked upon admission. However he reports his last drink was prior to hospital arrival. Mildly deranged LFTs, suspect related to alcohol liver disease. Will obtain ultrasound of the liver to assess for any underlying cirrhosis. Echocardiogram showing LV systolic function with a EF of 60 to 65%, grade 1 diastolic dysfunction, mild MR, mild pulmonary hypertension. Add Lasix 20 mg IV every 12 hours. Check hepatitis panel for chronic hep B or C Continue Tamiflu 75 mg twice daily for influenza A infection. Currently no signs of consolidation, holding off on antibiotics. Supportive management for now. Blood cultures pending. Continue thiamine 100 mg p.o. daily. Check D dimer to screen for PE as CXR does not justify new 02 requirement of 4lpm October 01, 2024 Patient exhibiting signs of delirium tremens. He is diaphoretic, febrile to 103 Fahrenheit, heart rate 130/min which may be related to febrile state versus delirium tremens. He is confused, lethargic and tremulous. He is being moved to the ICU for initiation of Precedex infusion. Additionally interim development of coarse crackles on examination. I am concerned that the patient may have aspirated now that he is lethargic. Check stat chest x-ray. ABG showing worsening hypoxia today. Additionally CT of the chest to assess for possible PE given elevated D-dimer screen. Start antibiotic coverage with piperacillin/tazobactam and vancomycin. Check MRSA nares. Sputum culture and Gram stain if able to expectorate. Continue diuresis with Lasix 20 mg every 24 hours. Change albuterol to Xopenex to minimize contribution to tachycardia. Increase librium 50 mg every 6 hrs. Continue tamiflu. PDMP PDMP Reviewed: Not Reviewed Attestations 2 Medical Necessity Statement*: alcohol withdrawal, delirium tremens, influenza Coding Level of Care Code Acute Code for [facility] Diagnoses Influenza A J10.1 Acute hypoxemic respiratory failure J96.01 Sepsis A41.9 Delirium tremens F10.931
--- NOTE | 2024-10-01 16:30 | PHA.VACGOAL ---
Vancomycin Goal - Goal Vancomycin Goal:: 15-20 mg/L Vancomycin Indication:: Other (SEPSIS) - Therapy Current therapy:: Pip/Tazo Day of therpy:: Day []of [] . Actual body weight (kg): 161 lb 9.6 oz - Data Labs: WBC 8.59 10^3/uL (3.29-11.43) 10/01/24 05:03 RBC 4.33 10^6/uL (3.85-5.65) 10/01/24 05:03 Hgb 14.20 g/dL (11.27-16.99) 10/01/24 05:03 Hct 42.7 % (37-53) 10/01/24 05:03 MCV 98.6 fl (82-101) 10/01/24 05:03 MCH 32.8 pg (27-33) 10/01/24 05:03 MCHC 33.3 g/dL (30-55) 10/01/24 05:03 RDW 13.2 % (12.1-15.1) 10/01/24 05:03 Sodium 139 mmol/L (136-145) 10/01/24 05:03 Potassium 3.7 mmol/L (3.5-5.1) 10/01/24 05:03 Chloride 99 mmol/L (98-107) 10/01/24 05:03 Carbon Dioxide 27 mmol/L (22-29) 10/01/24 05:03 Anion Gap 16.7 (5-19) 10/01/24 05:03 BUN 31 mg/dL (8-23) H 10/01/24 05:03 Creatinine 0.8 mg/dL (0.7-1.2) 10/01/24 05:03 GFR Calculation 96.7 mL/min (90-130) 10/01/24 05:03 Last dialysis session:: N/A Treatment plan:: new consult Regimen:: INITIAL LOADING DOSE 2000 MG X 1 MAINTENANCE DOSE OF 1500 MG Q12H Follow up:: WILL CONTINUE TO MONITOR AND FOLLOW UP DAILY
[2024-10-01] MEDS: piperacillin-tazobactam 3.375 GM in sodium chloride 0.9% (plus) 50 ML IV (17:03)
[2024-10-01] MEDS: vancomycin 2,000 MG/400 ML PIGGYBACK 200 MG IV (17:03)
[2024-10-01] MEDS: dexmedeTOMIDine 0.9 % NaCL 400 MCG/100 ML PREMIX IV (17:05)
--- NOTE | 2024-10-01 18:31 | PC.NURSE ---
Shift summary: Pt's heart rate has improved since the start of Precedex. It is at 0.3mcg/kg/hr. He is tolerating it well. He was started on Zosyn and Vancomycin this afternoon He is febrile again at end of this shift, 101.5. He reains on 3lpm/NC. His respirations are deep at times. Mostly it is snoring with apneic pauses. He was able to swallow pills whole with some coaxing due to his altered mental status. He has urinated 2 times since his arrival to ICU. The lst time he was incontinent, incontinent briefs provided with linen change. No pain per pt.
[2024-10-01 20:08] LABS: MRSA PCR OZH (swab) NOT DETECTED (Negative)
--- NOTE | 2024-10-01 20:22 | PC.NURSE ---
Physician Notification: Dr. Johnson notified @ of GCS and BiPAP being applied. New order for spring catheter. Unable to complete CIWA assessment- pt can not answer questions at this time.
[2024-10-01] MEDS: enoxaparin 40 mg/0.4 mL Syringe SUBCUT (21:05)
[2024-10-01] MEDS: ketorolac 30 mg/mL INJ 15 MG IVP (21:25)
[2024-10-02] VITALS (47 sets, daily range): BP systolic 94–138; BP diastolic 65–85; PULSE 74–102; RESP 27–42; TEMP 36.4–37.5; O2SAT 91–97
--- NOTE | 2024-10-02 00:52 | PC.NURSE ---
Scheduled Librium: GCS-9. Pt is unable to safely swallow pills at this time. Dr. Johnson notified @[phone].
[2024-10-02] MEDS: piperacillin-tazobactam 3.375 GM in sodium chloride 0.9% (plus) 50 ML IV ×3 (01:09→17:49)
--- NOTE | 2024-10-02 01:49 | PC.NURSE ---
ABG: Dr. Johnson called @[phone] to notify that pt has made minimal improvements since BiPAP was initiated. New order for NUPUR.
[2024-10-02] MEDS: levalbuterol 0.63 mg/3 mL Neb INHALATION ×4 (01:57→19:49)
[2024-10-02] MEDS: ipratropium 0.5 mg/2.5 mL Neb INHALATION ×4 (01:57→19:49)
[2024-10-02 02:16] LABS: ABG PCO2 35.7 mmHg (35-45); ABG PH Result 7.48 (7.35-7.45); Alveolar-Arterial Oxygen Gradi 21.9 mmHg (5-10); Arterial Blood Gas Hematocrit 52.5 % (42-52); Base Excess ABG 3.6 mmol/L (-2.0-2.0); Blood Gas Operator Identificat JDB; Blood Gas Sample Site Brachial, right; Blood Gas Sample Type Arterial; Carboxyhemoglobin 1.2 %THgb (0.4-20.1); HCO3 ABG 26.8 mmol/L (22-26); HGB O2 Sat 93.7 % (95-100); Ionized Calcium Level - ABG 1.1 mmol/L (1.1-1.4); Methemoglobin 0.8 % (0.4-1.5); Oxygen Device BIPAP; Oxygen Saturation ABG 95.6; PO2 ABG 73.2 mmHg (80.0-100.0); PO2 FiO2 Ratio Arterial Blood 183; Potassium Level - ABG 3.2 mmol/L (3.5-5.0); Total Hemoglobin 17.1 g/dL (14-18)
[2024-10-02] MEDS: vancomycin 1,500 MG/300 ML PIGGYBACK 200 MG IV ×2 (04:25→17:49)
[2024-10-02 04:47] LABS: Basophils % 0.3 %; Hematocrit 42.2 % (37-53); Lymphocytes # 1.1 10^3/uL (0.8-4.8); Lymphocytes % 16.4 %; Mean Corpuscular HGB Conc 33.2 g/dL (30-55); Mean Corpuscular Hemoglobin 32.7 pg (27-33); Mean Corpuscular Volume 98.6 fl (82-101); Monocytes # 0.8 10^3/uL (0.2-0.9); Monocytes % 11.6 %; Neutrophils # 4.77 10^3/uL (1.8-7.7); Neutrophils % 71.1 %; Nucleated Red Blood Cells % 0 %; Platelet Count 155 10^3/cmm (157-399); Red Blood Count 4.28 10^6/uL (3.85-5.65); Red Cell Distribution Width 13.2 % (12.1-15.1); White Blood Count 6.71 10^3/uL (3.29-11.43)
[2024-10-02 05:12] LABS: Alanine Aminotransferase 28 U/L (0-41); Albumin Level 3.4 g/dL (3.5-5.2); Alkaline Phosphatase 86 U/L (40-130); Anion Gap 20.2 (5-19); Aspartate Amino Transferase 33 U/L (0-40); Blood Urea Nitrogen 27 mg/dL (8-23); Calcium 8.4 mg/dL (8.5-10.5); Carbon Dioxide 24 mmol/L (22-29); Chloride 97 mmol/L (98-107); Creatinine Clr Calc Pharmacy 72.3149; Globulin 3.3 g/dL (1.3-4.6); Glomerular Filtration Rate 74.8 mL/min (90-130); Glucose 99 mg/dL (65-115); Osmolality Calculated 291 mOsm/kg (285-295); Potassium 3.2 mmol/L (3.5-5.1); Sodium 138 mmol/L (136-145); Total Bilirubin 0.9 mg/dL (0.15-1.2); Total Protein 6.7 g/dL (6.6-8.7)
[2024-10-02] MEDS: lidocaine 1% 5 ML in potassium chloride premix 100 ML 50 ML IV (05:55)
[2024-10-02] MEDS: chlordiazePOXIDE 25 mg Capsule 50 MG PO ×3 (06:13→17:58)
[2024-10-02] MEDS: budesonide 0.5 mg/2 mL Neb INHALATION ×2 (08:36→19:49)
--- NOTE | 2024-10-02 10:24 | P.PN_ITS ---
Subjective 2 Subjective: last febrile overnight at 100.8F, follows commands this morning, remains on bipap, HR better controlled Medications: Reviewed: Yes Vitals/I&O/Wt Last Vital Signs Temp 97.7 F 10/02/24 21:16 Pulse 85 10/02/24 22:00 Resp 31 H 10/02/24 22:00 BP 94/66 10/02/24 22:00 Pulse Ox 94 10/02/24 22:00 O2 Del Method BiPAP 10/02/24 22:00 O2 Flow Rate 5 10/02/24 18:00 FiO2 40 10/02/24 22:00 10/02/24 10/02/24 10/02/24 06:59 14:59 22:59 Intake Total 374.438 / 1043.099 385 / 385 441.901 / 826.901 Output Total 500 / 900 1100 / 1100 Balance -125.562 / 143.099 385 / 385 -658.099 / -273.099 Weight last 48 hrs Weight 63.866 kg Weight 73.301 kg Physical Exam 2 Narrative: General: lethargic but following commands HEENT: PERRLA, pupils bilaterally equal and reactive, pallors not present Chest: Coarse crackles to auscultation bilaterally CVS: S1-S2 regular, no murmurs, no tachycardia, no gallops, no rubs Abdomen: Soft, nontender, no organomegaly, bowel sounds present Neuro: No focal deficits, moves all extremities Urinary Catheter Management: Munoz: Cath Placed During This Visit: yes Reason for Continuing Indwelling Catheter: Accurate Measurement of Urinary Output in Critically Ill Patients Urinary Catheter Date of Insertion: 10/01/24 Urinary Catheter Time of Insertion: 20:19 Data 10/02/24 03:30 10/02/24 03:30 Micro: Microbiology 10/01/24 16:16 Blood Culture - Preliminary Blood NEGATIVE TO DATE 10/01/24 16:12 Blood Culture - Preliminary Blood NEGATIVE TO DATE A&P Assessment and plan (1) Influenza A: (2) Acute hypoxemic respiratory failure: (3) Sepsis: (4) Delirium tremens: Plan Sepsis with acute hypoxia related to influenza A Clinically looks euvolemic Start Tamiflu DuoNeb treatment along budesonide Procalcitonin is not high hold off on antibiotics for now Patient was given septic bolus, sepsis criteria met with tachypnea tachycardia high lactic acid, endorgan damage requiring oxygen: High lactic acid likely secondary to increased work of breathing Chest x-ray does not show any infiltrate, procalcitonin unremarkable Requested echo for high BNP Conservative management for fluid Currently requiring 4 L of nasal cannula, wean oxygen before discharge, patient will need home oxygen evaluation Afebrile Troponin trending down, patient not complaining active chest pain, EKG unremarkable Full code Cardiac diet DVT prophylaxisLovenox September 30, 2024. 64-year-old male with history of chronic alcohol abuse, last drink on day of admission currently admitted to the hospital for influenza A infection and alcohol withdrawal.At the time of this assessment patient was noted to be in amairani alcohol withdrawal. He had several tremors affecting bilateral upper and lower extremities, reported feeling anxious, was sweating. He has been given Ativan per [facility] protocol. Additionally will add Librium as a standing dose. Alcohol level was not checked upon admission. However he reports his last drink was prior to hospital arrival. Mildly deranged LFTs, suspect related to alcohol liver disease. Will obtain ultrasound of the liver to assess for any underlying cirrhosis. Echocardiogram showing LV systolic function with a EF of 60 to 65%, grade 1 diastolic dysfunction, mild MR, mild pulmonary hypertension. Add Lasix 20 mg IV every 12 hours. Check hepatitis panel for chronic hep B or C Continue Tamiflu 75 mg twice daily for influenza A infection. Currently no signs of consolidation, holding off on antibiotics. Supportive management for now. Blood cultures pending. Continue thiamine 100 mg p.o. daily. Check D dimer to screen for PE as CXR does not justify new 02 requirement of 4lpm October 01, 2024 Patient exhibiting signs of delirium tremens. He is diaphoretic, febrile to 103 Fahrenheit, heart rate 130/min which may be related to febrile state versus delirium tremens. He is confused, lethargic and tremulous. He is being moved to the ICU for initiation of Precedex infusion. Additionally interim development of coarse crackles on examination. I am concerned that the patient may have aspirated now that he is lethargic. Check stat chest x-ray. ABG showing worsening hypoxia today. Additionally CT of the chest to assess for possible PE given elevated D-dimer screen. Start antibiotic coverage with piperacillin/tazobactam and vancomycin. Check MRSA nares. Sputum culture and Gram stain if able to expectorate. Continue diuresis with Lasix 20 mg every 24 hours. Change albuterol to Xopenex to minimize contribution to tachycardia. Increase librium 50 mg every 6 hrs. Continue tamiflu. September On precedex 0.1 this morning, lethargic but able to follow all commands today, remains on Bipap this morning. Plan to continue precedex for delirium tremens, continue librium 50mg q6h, to taper next 24 hrs if improving. Attenpt to wean off bipap today. CTa chest without signs of PE or consolidation. Continue NPO as concerned for aspiration. Continue Zosyn. continue tamiflu . blood cx pending. D/c vanc if blood cx remains negative at 48 hrs PDMP PDMP Reviewed: Not Reviewed Attestations 2 Medical Necessity Statement*: alcohol withdrawal, delirium tremens, influenza Coding Level of Care Code Acute Code for Chg Fwd High MDM includes number and complexity of problems actively addressed during encounter, amount and/or complexity of data reviewed/ordered and described risk of complication, morbidity or mortality of management as documented Diagnoses Influenza A J10.1 Acute hypoxemic respiratory failure J96.01 Sepsis A41.9 Delirium tremens F10.931
[2024-10-02] MEDS: nicotine 21 mg Patch 1 PATCH TRANSDERMA (10:31)
[2024-10-02] MEDS: oseltamivir phosphate 75 mg Capsule PO ×2 (10:32→17:47)
[2024-10-02] MEDS: multivitamin therapeutic Tablet 1 TAB PO (10:32)
[2024-10-02] MEDS: folic acid 1 mg Tablet PO (10:32)
[2024-10-02] MEDS: thiamine 100 mg Tablet PO (10:32)
[2024-10-02] MEDS: lidocaine 1% 5 ML in potassium chloride premix 100 ML 52.5 ML IV (10:34)
[2024-10-02] MEDS: lidocaine 1% 5 ML in potassium chloride premix 100 ML 26.25 ML IV (12:53)
[2024-10-02] MEDS: FUROsemide 10 mg/mL SDV 2mL 20 MG IVP (14:09)
[2024-10-02 17:28] LABS: Glucose Point of Care 101 mg/dL (70-110)
--- NOTE | 2024-10-02 19:10 | PC.NURSE ---
Shift summary: Pt continued to rest in bed throughout shift. He did rest with eyes closed for most of shift. He is more alert and oriented today, he could say hims name, birthday and he was at [place]. He was able to yes/no to needs. He did say yes to feeling better today. Sinus rhythm noted on monitor. he was using BIPa this am until 1000, then he was switched to 4/5 lpm/NC. CIWA were less than 10 all shift, no Ativan admin today. He has requested water today, sips provided, no swallowing issues noted. His highest temp this sift was 99.5 F. Bed bath, shampoo and linen changed provided this evening. 1100 ml of pale yellow urine output. No BM noted, just a smear. He has denied pain throughout the shift. His daughter called for an update this am, update provided.
[2024-10-02] MEDS: acetaminophen 500 mg Tablet PO (19:36)
[2024-10-02] MEDS: enoxaparin 40 mg/0.4 mL Syringe SUBCUT (20:46)
[2024-10-02] MEDS: dexmedeTOMIDine 0.9 % NaCL 400 MCG/100 ML PREMIX IV (22:04)
[2024-10-03] VITALS (37 sets, daily range): BP systolic 96–149; BP diastolic 59–81; PULSE 72–100; RESP 18–33; TEMP 36.6–38.3; O2SAT 89–97
[2024-10-03] MEDS: chlordiazePOXIDE 25 mg Capsule 50 MG PO ×4 (01:16→20:36)
[2024-10-03] MEDS: piperacillin-tazobactam 3.375 GM in sodium chloride 0.9% (plus) 50 ML IV ×3 (01:17→22:17)
[2024-10-03] MEDS: levalbuterol 0.63 mg/3 mL Neb INHALATION ×4 (02:49→20:40)
[2024-10-03] MEDS: ipratropium 0.5 mg/2.5 mL Neb INHALATION ×4 (02:50→20:40)
[2024-10-03] MEDS: vancomycin 1,500 MG/300 ML PIGGYBACK 200 MG IV (04:33)
[2024-10-03 07:11] LABS: Basophils % 0.4 %; Eosinophils % 0.5 %; Hematocrit 42.8 % (37-53); Lymphocytes # 1.1 10^3/uL (0.8-4.8); Lymphocytes % 20.5 %; Mean Corpuscular HGB Conc 32.9 g/dL (30-55); Mean Corpuscular Hemoglobin 32.6 pg (27-33); Mean Corpuscular Volume 99.1 fl (82-101); Mean Platelet Volume 10.5 fL (7.4-10.4); Monocytes # 0.6 10^3/uL (0.2-0.9); Neutrophils # 3.72 10^3/uL (1.8-7.7); Neutrophils % 66.9 %; Nucleated Red Blood Cells % 0 %; Platelet Count 141 10^3/cmm (157-399); Red Blood Count 4.32 10^6/uL (3.85-5.65); Red Cell Distribution Width 13.2 % (12.1-15.1); White Blood Count 5.56 10^3/uL (3.29-11.43)
[2024-10-03 07:25] LABS: Alanine Aminotransferase 22 U/L (0-41); Albumin Level 3.2 g/dL (3.5-5.2); Alkaline Phosphatase 77 U/L (40-130); Anion Gap 20.4 (5-19); Aspartate Amino Transferase 23 U/L (0-40); Blood Urea Nitrogen 30 mg/dL (8-23); Calcium 8.4 mg/dL (8.5-10.5); Carbon Dioxide 22 mmol/L (22-29); Chloride 96 mmol/L (98-107); Creatinine Clr Calc Pharmacy 68.8274; Globulin 3.4 g/dL (1.3-4.6); Glomerular Filtration Rate 74.8 mL/min (90-130); Glucose 79 mg/dL (65-115); Osmolality Calculated 285 mOsm/kg (285-295); Potassium 3.4 mmol/L (3.5-5.1); Sodium 135 mmol/L (136-145); Total Bilirubin 0.6 mg/dL (0.15-1.2); Total Protein 6.6 g/dL (6.6-8.7)
[2024-10-03] MEDS: budesonide 0.5 mg/2 mL Neb INHALATION ×2 (08:28→20:40)
[2024-10-03] MEDS: folic acid 1 mg Tablet PO (08:38)
[2024-10-03] MEDS: nicotine 21 mg Patch 1 PATCH TRANSDERMA (08:38)
[2024-10-03] MEDS: thiamine 100 mg Tablet PO (08:38)
[2024-10-03] MEDS: oseltamivir phosphate 75 mg Capsule PO ×2 (08:38→17:19)
[2024-10-03] MEDS: multivitamin therapeutic Tablet 1 TAB PO (08:38)
[2024-10-03 09:12] LABS: Glucose Point of Care 86 mg/dL (70-110)
[2024-10-03] MEDS: acetaminophen 500 mg Tablet PO ×2 (12:17→23:18)
[2024-10-03 12:25] LABS: Glucose Point of Care 86 mg/dL (70-110)
--- NOTE | 2024-10-03 14:03 | P.PN_ITS ---
Subjective 2 Subjective: Patient is clinically better today. On Precedex 0.1. This is been weaned off this morning. CIWA is at 10. Patient is much more calm and cooperative. He is able to follow commands though does remain somnolent. Medications: Reviewed: Yes Vitals/I&O/Wt Last Vital Signs Temp 98.3 F 10/03/24 12:00 Pulse 77 10/03/24 13:47 Resp 22 H 10/03/24 13:28 BP 123/66 10/03/24 12:00 Pulse Ox 95 10/03/24 13:28 O2 Del Method Nasal Cannula 10/03/24 13:28 O2 Flow Rate 3 10/03/24 13:28 FiO2 40 10/03/24 06:00 10/02/24 10/03/24 10/03/24 22:59 06:59 14:59 Intake Total 491.901 / 876.901 844.213 / 1721.114 7.351 / 7.351 Output Total 1100 / 1100 450 / 1550 175 / 175 Balance -608.099 / -223.099 394.213 / 171.114 -167.649 / -167.649 Weight last 48 hrs Weight 64.818 kg Weight 63.866 kg Physical Exam 2 Narrative: General: lethargic but following commands HEENT: PERRLA, pupils bilaterally equal and reactive, pallors not present Chest: Coarse crackles to auscultation bilaterally CVS: S1-S2 regular, no murmurs, no tachycardia, no gallops, no rubs Abdomen: Soft, nontender, no organomegaly, bowel sounds present Neuro: No focal deficits, moves all extremities Urinary Catheter Management: Munoz: Cath Placed During This Visit: yes Reason for Continuing Indwelling Catheter: Accurate Measurement of Urinary Output in Critically Ill Patients Urinary Catheter Date of Insertion: 10/01/24 Urinary Catheter Time of Insertion: 20:19 Data 10/03/24 06:40 10/03/24 06:40 Micro: Microbiology 10/01/24 16:16 Blood Culture - Preliminary Blood NEGATIVE TO DATE 10/01/24 16:12 Blood Culture - Preliminary Blood NEGATIVE TO DATE A&P Assessment and plan (1) Influenza A: (2) Acute hypoxemic respiratory failure: (3) Sepsis: (4) Delirium tremens: Plan Sepsis with acute hypoxia related to influenza A Clinically looks euvolemic Start Tamiflu DuoNeb treatment along budesonide Procalcitonin is not high hold off on antibiotics for now Patient was given septic bolus, sepsis criteria met with tachypnea tachycardia high lactic acid, endorgan damage requiring oxygen: High lactic acid likely secondary to increased work of breathing Chest x-ray does not show any infiltrate, procalcitonin unremarkable Requested echo for high BNP Conservative management for fluid Currently requiring 4 L of nasal cannula, wean oxygen before discharge, patient will need home oxygen evaluation Afebrile Troponin trending down, patient not complaining active chest pain, EKG unremarkable Full code Cardiac diet DVT prophylaxisLovenox September 30, 2024. 64-year-old male with history of chronic alcohol abuse, last drink on day of admission currently admitted to the hospital for influenza A infection and alcohol withdrawal.At the time of this assessment patient was noted to be in amairani alcohol withdrawal. He had several tremors affecting bilateral upper and lower extremities, reported feeling anxious, was sweating. He has been given Ativan per [facility] protocol. Additionally will add Librium as a standing dose. Alcohol level was not checked upon admission. However he reports his last drink was prior to hospital arrival. Mildly deranged LFTs, suspect related to alcohol liver disease. Will obtain ultrasound of the liver to assess for any underlying cirrhosis. Echocardiogram showing LV systolic function with a EF of 60 to 65%, grade 1 diastolic dysfunction, mild MR, mild pulmonary hypertension. Add Lasix 20 mg IV every 12 hours. Check hepatitis panel for chronic hep B or C Continue Tamiflu 75 mg twice daily for influenza A infection. Currently no signs of consolidation, holding off on antibiotics. Supportive management for now. Blood cultures pending. Continue thiamine 100 mg p.o. daily. Check D dimer to screen for PE as CXR does not justify new 02 requirement of 4lpm October 01, 2024 Patient exhibiting signs of delirium tremens. He is diaphoretic, febrile to 103 Fahrenheit, heart rate 130/min which may be related to febrile state versus delirium tremens. He is confused, lethargic and tremulous. He is being moved to the ICU for initiation of Precedex infusion. Additionally interim development of coarse crackles on examination. I am concerned that the patient may have aspirated now that he is lethargic. Check stat chest x-ray. ABG showing worsening hypoxia today. Additionally CT of the chest to assess for possible PE given elevated D-dimer screen. Start antibiotic coverage with piperacillin/tazobactam and vancomycin. Check MRSA nares. Sputum culture and Gram stain if able to expectorate. Continue diuresis with Lasix 20 mg every 24 hours. Change albuterol to Xopenex to minimize contribution to tachycardia. Increase librium 50 mg every 6 hrs. Continue tamiflu. September On precedex 0.1 this morning, lethargic but able to follow all commands today, remains on Bipap this morning. Plan to continue precedex for delirium tremens, continue librium 50mg q6h, to taper next 24 hrs if improving. Attenpt to wean off bipap today. CTa chest without signs of PE or consolidation. Continue NPO as concerned for aspiration. Continue Zosyn. continue tamiflu . blood cx pending. D/c vanc if blood cx remains negative at 48 hrs October 03, 2024 CIWA still 10, however clinically much better. Less tremulous, able to follow directions and commands. Breathing is comfortable. Currently on 3 L/min supplemental O2. D4 Tamiflu today, will complete 5-day course tomorrow. Continue empiric antibiotic coverage with piperacillin/tazobactam and vancomycin. He has been afebrile for over 24 hours at this point. Blood cultures remaining negative to date. Kidney function stable. Discontinue Precedex and closely monitor. Transfer out of ICU if able to remain calm and cooperative off Precedex today. Continue Librium 50 mg p.o., taper down to every 8 hours today. Continue as needed Ativan per CIWA score. PDMP PDMP Reviewed: Not Reviewed Attestations 2 Medical Necessity Statement*: alcohol withdrawal, delirium tremens, influenza Coding Level of Care Code Acute Code for Chg Fwd High MDM includes number and complexity of problems actively addressed during encounter, amount and/or complexity of data reviewed/ordered and described risk of complication, morbidity or mortality of management as documented Diagnoses Influenza A J10.1 Acute hypoxemic respiratory failure J96.01 Sepsis A41.9 Delirium tremens F10.931
[2024-10-03] MEDS: lidocaine 1% 5 ML in potassium chloride premix 100 ML 26.25 ML IV (14:40)
[2024-10-03] MEDS: FUROsemide 10 mg/mL SDV 2mL 20 MG IVP (14:42)
[2024-10-03 16:15] LABS: Vancomycin Trough 21.4 ug/mL (10-15)
[2024-10-03] MEDS: vancomycin 1,250 MG/250 ML PIGGYBACK 166.67 MG IV (20:36)
[2024-10-03] MEDS: enoxaparin 40 mg/0.4 mL Syringe SUBCUT (20:36)
[2024-10-04] VITALS (13 sets, daily range): BP systolic 117–147; BP diastolic 68–87; PULSE 79–96; RESP 17–22; TEMP 36.6–37.3; O2SAT 86–96
[2024-10-04] MEDS: ipratropium 0.5 mg/2.5 mL Neb INHALATION ×4 (02:09→22:08)
[2024-10-04] MEDS: levalbuterol 0.63 mg/3 mL Neb INHALATION ×4 (02:09→22:08)
[2024-10-04] MEDS: chlordiazePOXIDE 25 mg Capsule 50 MG PO ×2 (05:16→12:16)
[2024-10-04] MEDS: piperacillin-tazobactam 3.375 GM in sodium chloride 0.9% (plus) 50 ML IV ×3 (05:16→22:31)
[2024-10-04 05:30] LABS: Basophils % 0.2 %; Eosinophils % 0.5 %; Hematocrit 43.5 % (37-53); Lymphocytes # 1.1 10^3/uL (0.8-4.8); Lymphocytes % 17.5 %; Mean Corpuscular HGB Conc 33.6 g/dL (30-55); Mean Corpuscular Volume 98.2 fl (82-101); Mean Platelet Volume 10.3 fL (7.4-10.4); Monocytes # 0.6 10^3/uL (0.2-0.9); Monocytes % 8.8 %; Neutrophils # 4.71 10^3/uL (1.8-7.7); Neutrophils % 72.4 %; Nucleated Red Blood Cells % 0 %; Platelet Count 150 10^3/cmm (157-399); Red Blood Count 4.43 10^6/uL (3.85-5.65); Red Cell Distribution Width 12.7 % (12.1-15.1)
[2024-10-04 05:51] LABS: Alanine Aminotransferase 22 U/L (0-41); Albumin Level 3.2 g/dL (3.5-5.2); Alkaline Phosphatase 74 U/L (40-130); Anion Gap 19.4 (5-19); Aspartate Amino Transferase 25 U/L (0-40); Blood Urea Nitrogen 21 mg/dL (8-23); Calcium 8.6 mg/dL (8.5-10.5); Carbon Dioxide 21 mmol/L (22-29); Chloride 100 mmol/L (98-107); Creatinine Clr Calc Pharmacy 86.0343; Globulin 3.5 g/dL (1.3-4.6); Glomerular Filtration Rate 112.8 mL/min (90-130); Glucose 83 mg/dL (65-115); Osmolality Calculated 286 mOsm/kg (285-295); Potassium 3.4 mmol/L (3.5-5.1); Sodium 137 mmol/L (136-145); Total Bilirubin 0.5 mg/dL (0.15-1.2); Total Protein 6.7 g/dL (6.6-8.7)
[2024-10-04] MEDS: budesonide 0.5 mg/2 mL Neb INHALATION ×2 (07:52→22:08)
[2024-10-04] MEDS: vancomycin 1,250 MG/250 ML PIGGYBACK 166.67 MG IV (09:47)
[2024-10-04] MEDS: thiamine 100 mg Tablet PO (09:50)
[2024-10-04] MEDS: oseltamivir phosphate 75 mg Capsule PO ×2 (09:50→18:38)
[2024-10-04] MEDS: nicotine 21 mg Patch 1 PATCH TRANSDERMA (09:51)
[2024-10-04] MEDS: multivitamin therapeutic Tablet 1 TAB PO (09:51)
[2024-10-04] MEDS: folic acid 1 mg Tablet PO (09:51)
[2024-10-04] MEDS: FUROsemide 10 mg/mL SDV 2mL 20 MG IVP (15:18)
[2024-10-04 16:47] LABS: Bilirubin Urine Negative (Negative); Blood Urine 1+ (Negative); Glucose Urine UA Negative (Normal); Ketones Urine Trace (Negative); Leukocyte Esterase Urine Negative (Negative); Nitrate Urine Negative (Negative); Protein Urine Negative (Negative); Specific Gravity, Urine 1.009 (1.005-1.030); Urine Appearance Clear (CLEAR); Urine Color Yellow (Yellow); Urobilinogen Urine 0.2 mg/dL (Negative); pH Urine 5.5 (5-7)
[2024-10-04 16:49] LABS: Add Urine Microscopic? YES; Bacteria Urine None Seen /hpf; Hyaline Casts Urine 8.26 /lpf; Squamous Epithelial Cell Urine 0-5 /hpf (0-5); WBC Urine 0-5 /hpf (0-5)
[2024-10-04 16:57] LABS: UA Slide Review UA Slide Review Perf
--- NOTE | 2024-10-04 18:05 | P.PN_ITS ---
Subjective 2 Subjective: Patient is doing better from a respiratory standpoint today. He is on 3 L/min supplemental O2. Breathing is very comfortable. He continues to be very lethargic. Mental status is better as he is able to answer all orientation questions correctly. Tells me his name, age, date of , fact that he is at [facility]. Does not recall events earlier in this admission. Medications: Reviewed: Yes Vitals/I&O/Wt Last Vital Signs Temp 98.2 F 10/04/24 16:21 Pulse 96 10/04/24 16:21 Resp 22 H 10/04/24 14:10 BP 138/87 10/04/24 16:21 Pulse Ox 94 10/04/24 16:21 O2 Del Method Nasal Cannula 10/04/24 16:21 O2 Flow Rate 3 10/04/24 16:21 FiO2 40 10/03/24 06:00 10/04/24 10/04/24 10/04/24 06:59 14:59 22:59 Intake Total 50 / 462.351 420 / 420 Output Total 375 / 1875 Balance -325 / -1412.649 420 / 420 Weight last 48 hrs Weight 64.818 kg Physical Exam 2 Narrative: General: lethargic but following commands HEENT: PERRLA, pupils bilaterally equal and reactive, pallors not present Chest: Coarse crackles to auscultation bilaterally CVS: S1-S2 regular, no murmurs, no tachycardia, no gallops, no rubs Abdomen: Soft, nontender, no organomegaly, bowel sounds present Neuro: No focal deficits, moves all extremities Urinary Catheter Management: Munoz: Cath Placed During This Visit: yes, but has since been removed by the nurse Reason for Continuing Indwelling Catheter: Other Urinary Catheter Date of Insertion: 10/01/24 Urinary Catheter Time of Insertion: 20:19 Date Urinary Catheter Removed: 10/04/24 Time Urinary Catheter Discontinued: 17:15 Data 10/04/24 05:10 10/04/24 05:10 Micro: Microbiology 09/29/24 17:40 Blood Culture - Final Blood NO GROWTH AFTER 5 DAYS 09/29/24 17:42 Blood Culture - Final Blood NO GROWTH AFTER 5 DAYS A&P Assessment and plan (1) Influenza A: (2) Acute hypoxemic respiratory failure: (3) Sepsis: (4) Delirium tremens: Plan Sepsis with acute hypoxia related to influenza A Clinically looks euvolemic Start Tamiflu DuoNeb treatment along budesonide Procalcitonin is not high hold off on antibiotics for now Patient was given septic bolus, sepsis criteria met with tachypnea tachycardia high lactic acid, endorgan damage requiring oxygen: High lactic acid likely secondary to increased work of breathing Chest x-ray does not show any infiltrate, procalcitonin unremarkable Requested echo for high BNP Conservative management for fluid Currently requiring 4 L of nasal cannula, wean oxygen before discharge, patient will need home oxygen evaluation Afebrile Troponin trending down, patient not complaining active chest pain, EKG unremarkable Full code Cardiac diet DVT prophylaxisLovenox September 30, 2024. 64-year-old male with history of chronic alcohol abuse, last drink on day of admission currently admitted to the hospital for influenza A infection and alcohol withdrawal.At the time of this assessment patient was noted to be in amairani alcohol withdrawal. He had several tremors affecting bilateral upper and lower extremities, reported feeling anxious, was sweating. He has been given Ativan per CIWA protocol. Additionally will add Librium as a standing dose. Alcohol level was not checked upon admission. However he reports his last drink was prior to hospital arrival. Mildly deranged LFTs, suspect related to alcohol liver disease. Will obtain ultrasound of the liver to assess for any underlying cirrhosis. Echocardiogram showing LV systolic function with a EF of 60 to 65%, grade 1 diastolic dysfunction, mild MR, mild pulmonary hypertension. Add Lasix 20 mg IV every 12 hours. Check hepatitis panel for chronic hep B or C Continue Tamiflu 75 mg twice daily for influenza A infection. Currently no signs of consolidation, holding off on antibiotics. Supportive management for now. Blood cultures pending. Continue thiamine 100 mg p.o. daily. Check D dimer to screen for PE as CXR does not justify new 02 requirement of 4lpm October 01, 2024 Patient exhibiting signs of delirium tremens. He is diaphoretic, febrile to 103 Fahrenheit, heart rate 130/min which may be related to febrile state versus delirium tremens. He is confused, lethargic and tremulous. He is being moved to the ICU for initiation of Precedex infusion. Additionally interim development of coarse crackles on examination. I am concerned that the patient may have aspirated now that he is lethargic. Check stat chest x-ray. ABG showing worsening hypoxia today. Additionally CT of the chest to assess for possible PE given elevated D-dimer screen. Start antibiotic coverage with piperacillin/tazobactam and vancomycin. Check MRSA nares. Sputum culture and Gram stain if able to expectorate. Continue diuresis with Lasix 20 mg every 24 hours. Change albuterol to Xopenex to minimize contribution to tachycardia. Increase librium 50 mg every 6 hrs. Continue tamiflu. September On precedex 0.1 this morning, lethargic but able to follow all commands today, remains on Bipap this morning. Plan to continue precedex for delirium tremens, continue librium 50mg q6h, to taper next 24 hrs if improving. Attenpt to wean off bipap today. CTa chest without signs of PE or consolidation. Continue NPO as concerned for aspiration. Continue Zosyn. continue tamiflu . blood cx pending. D/c vanc if blood cx remains negative at 48 hrs October 03, 2024 CIWA still 10, however clinically much better. Less tremulous, able to follow directions and commands. Breathing is comfortable. Currently on 3 L/min supplemental O2. D4 Tamiflu today, will complete 5-day course tomorrow. Continue empiric antibiotic coverage with piperacillin/tazobactam and vancomycin. He has been afebrile for over 24 hours at this point. Blood cultures remaining negative to date. Kidney function stable. Discontinue Precedex and closely monitor. Transfer out of ICU if able to remain calm and cooperative off Precedex today. Continue Librium 50 mg p.o., taper down to every 8 hours today. Continue as needed Ativan per CIWA score. October 04, 2024 Patient is clinically doing better today. He is able to answer all orientation questions correctly however still remains very lethargic. He is following all commands. Breathing is comfortable. Remains on 3 L/min supplemental O2. Completing day 5 of Tamiflu today. Continuing empiric antibiotics Zosyn and vancomycin as he had fever of 101 Fahrenheit overnight. Would have expected fever from influenza to be improving by now. CT of the chest did not show any obvious pneumonia though highly suspected him to have had an aspiration event. Blood cultures are negative to date. Check urine analysis. Patient had 1 episode of diarrhea today, complaining of some abdominal discomfort, check CT of the abdomen and pelvis to assess for potential diverticulitis or colitis. Check C. difficile PCR from stool. Reduce Librium to 25 mg p.o. every 8 hours as may be contributing to patient's current lethargy. Continue as needed Ativan per CIWA score. Discontinue Munoz catheter today. PDMP PDMP Reviewed: Not Reviewed Attestations 2 Medical Necessity Statement*: alcohol withdrawal, influenza, persisting fever, need for ongoing IV antibiotics Coding Level of Care Code Acute Code for Chg Fwd High MDM includes number and complexity of problems actively addressed during encounter, amount and/or complexity of data reviewed/ordered and described risk of complication, morbidity or mortality of management as documented Diagnoses Influenza A J10.1 Acute hypoxemic respiratory failure J96.01 Sepsis A41.9 Delirium tremens F10.931
[2024-10-04 18:33] LABS: C.Diff PCR (Lab) NEGATIVE (Negative)
[2024-10-04] MEDS: acetaminophen 500 mg Tablet PO (18:38)
[2024-10-04] MEDS: vancomycin 1,250 MG/250 ML PIGGYBACK 167 MG IV (20:23)
[2024-10-04] MEDS: chlordiazePOXIDE 25 mg Capsule PO (20:24)
[2024-10-04] MEDS: enoxaparin 40 mg/0.4 mL Syringe SUBCUT (20:24)
[2024-10-05] VITALS (24 sets, daily range): BP systolic 103–163; BP diastolic 66–84; PULSE 82–120; RESP 16–127; TEMP 36.4–37.1; O2SAT 88–100
[2024-10-05] MEDS: levalbuterol 0.63 mg/3 mL Neb INHALATION ×4 (03:36→21:27)
[2024-10-05] MEDS: ipratropium 0.5 mg/2.5 mL Neb INHALATION ×4 (03:36→21:28)
[2024-10-05] MEDS: piperacillin-tazobactam 3.375 GM in sodium chloride 0.9% (plus) 50 ML IV ×2 (06:12→13:17)
[2024-10-05] MEDS: chlordiazePOXIDE 25 mg Capsule PO ×3 (06:12→21:56)
[2024-10-05 07:28] LABS: Alanine Aminotransferase 25 U/L (0-41); Albumin Level 3.1 g/dL (3.5-5.2); Alkaline Phosphatase 72 U/L (40-130); Anion Gap 21.1 (5-19); Aspartate Amino Transferase 32 U/L (0-40); Blood Urea Nitrogen 18 mg/dL (8-23); Calcium 8.7 mg/dL (8.5-10.5); Carbon Dioxide 19 mmol/L (22-29); Chloride 98 mmol/L (98-107); Creatinine Clr Calc Pharmacy 89.5544; Globulin 3.6 g/dL (1.3-4.6); Glomerular Filtration Rate 112.8 mL/min (90-130); Glucose 83 mg/dL (65-115); Osmolality Calculated 281 mOsm/kg (285-295); Potassium 3.1 mmol/L (3.5-5.1); Sodium 135 mmol/L (136-145); Total Bilirubin 0.4 mg/dL (0.15-1.2); Total Protein 6.7 g/dL (6.6-8.7); Vancomycin Trough 18.6 ug/mL (10-15)
[2024-10-05 07:45] LABS: Basophils % 0.3 %; Eosinophils # 0.1 10^3/uL (0.0-0.8); Eosinophils % 1.8 %; Hematocrit 44.4 % (37-53); Lymphocytes # 1.3 10^3/uL (0.8-4.8); Lymphocytes % 20.4 %; Mean Corpuscular Hemoglobin 32.6 pg (27-33); Mean Corpuscular Volume 95.9 fl (82-101); Mean Platelet Volume 10.5 fL (7.4-10.4); Monocytes # 0.5 10^3/uL (0.2-0.9); Monocytes % 8.6 %; Neutrophils # 4.22 10^3/uL (1.8-7.7); Neutrophils % 68.3 %; Nucleated Red Blood Cells % 0 %; Platelet Count 146 10^3/cmm (157-399); Red Blood Count 4.63 10^6/uL (3.85-5.65); Red Cell Distribution Width 12.9 % (12.1-15.1); White Blood Count 6.18 10^3/uL (3.29-11.43)
[2024-10-05 08:10] LABS: Slide Review Slide Review Perform
[2024-10-05] MEDS: folic acid 1 mg Tablet PO (09:03)
[2024-10-05] MEDS: thiamine 100 mg Tablet PO (09:03)
[2024-10-05] MEDS: oseltamivir phosphate 75 mg Capsule PO (09:03)
[2024-10-05] MEDS: vancomycin 1,250 MG/250 ML PIGGYBACK 167 MG IV (09:03)
[2024-10-05] MEDS: multivitamin therapeutic Tablet 1 TAB PO (09:03)
[2024-10-05] MEDS: nicotine 21 mg Patch 1 PATCH TRANSDERMA (09:03)
[2024-10-05] MEDS: budesonide 0.5 mg/2 mL Neb INHALATION ×2 (09:04→21:27)
--- NOTE | 2024-10-05 12:15 | P.PN_ITS ---
Subjective 2 Subjective: Seen today. Patient resting comfortably in bed. He appears to be lethargic. However he knows that he is in the hospital. Able to tell me his name and date of this morning. Does not offer any complaints. Is requiring 5 L nasal cannula at this time. Unable to tell me whether he wears oxygen at home or not. He has been weaned off from BiPAP. Still having intermittent fevers. CT abdomen pelvis and CT head pending. Vitals/I&O/Wt Last Vital Signs Temp 97.8 F 10/05/24 08:11 Pulse 84 10/05/24 08:11 Resp 24 H 10/05/24 08:11 BP 112/69 10/05/24 08:11 Pulse Ox 90 10/05/24 08:11 O2 Del Method Nasal Cannula 10/05/24 08:11 O2 Flow Rate 5 10/05/24 08:11 FiO2 40 10/03/24 06:00 10/04/24 10/05/24 10/05/24 22:59 06:59 14:59 Intake Total 420 / 840 410 / 1250 300.000 / 300.000 Balance 420 / 840 410 / 1250 300.000 / 300.000 Weight last 48 hrs Weight 71.668 kg Physical Exam 2 Narrative: General: lethargic but following commands able to tell me name and date of . He knows he is in [place]. HEENT: PERRLA, pupils bilaterally equal and reactive, pallors not present Chest: Coarse crackles to auscultation bilaterally CVS: S1-S2 regular, no murmurs, no tachycardia, no gallops, no rubs Abdomen: Soft, nontender, no organomegaly, bowel sounds present Neuro: No focal deficits, moves all extremities Urinary Catheter Management: Munoz: Cath Placed During This Visit: yes, but has since been removed by the nurse Reason for Continuing Indwelling Catheter: Other Urinary Catheter Date of Insertion: 10/01/24 Urinary Catheter Time of Insertion: 20:19 Date Urinary Catheter Removed: 10/04/24 Time Urinary Catheter Discontinued: 17:15 Data 10/05/24 07:02 10/05/24 07:02 Micro: Microbiology 09/29/24 17:40 Blood Culture - Final Blood NO GROWTH AFTER 5 DAYS 09/29/24 17:42 Blood Culture - Final Blood NO GROWTH AFTER 5 DAYS A&P Assessment and plan (1) Influenza A: (2) Acute hypoxemic respiratory failure: (3) Sepsis: (4) Delirium tremens: Plan Sepsis with acute hypoxia related to influenza A Clinically looks euvolemic Start Tamiflu DuoNeb treatment along budesonide Procalcitonin is not high hold off on antibiotics for now Patient was given septic bolus, sepsis criteria met with tachypnea tachycardia high lactic acid, endorgan damage requiring oxygen: High lactic acid likely secondary to increased work of breathing Chest x-ray does not show any infiltrate, procalcitonin unremarkable Requested echo for high BNP Conservative management for fluid Currently requiring 4 L of nasal cannula, wean oxygen before discharge, patient will need home oxygen evaluation Afebrile Troponin trending down, patient not complaining active chest pain, EKG unremarkable Full code Cardiac diet DVT prophylaxisLovenox September 30, 2024. 64-year-old male with history of chronic alcohol abuse, last drink on day of admission currently admitted to the hospital for influenza A infection and alcohol withdrawal.At the time of this assessment patient was noted to be in amairani alcohol withdrawal. He had several tremors affecting bilateral upper and lower extremities, reported feeling anxious, was sweating. He has been given Ativan per CIWA protocol. Additionally will add Librium as a standing dose. Alcohol level was not checked upon admission. However he reports his last drink was prior to hospital arrival. Mildly deranged LFTs, suspect related to alcohol liver disease. Will obtain ultrasound of the liver to assess for any underlying cirrhosis. Echocardiogram showing LV systolic function with a EF of 60 to 65%, grade 1 diastolic dysfunction, mild MR, mild pulmonary hypertension. Add Lasix 20 mg IV every 12 hours. Check hepatitis panel for chronic hep B or C Continue Tamiflu 75 mg twice daily for influenza A infection. Currently no signs of consolidation, holding off on antibiotics. Supportive management for now. Blood cultures pending. Continue thiamine 100 mg p.o. daily. Check D dimer to screen for PE as CXR does not justify new 02 requirement of 4lpm October 01, 2024 Patient exhibiting signs of delirium tremens. He is diaphoretic, febrile to 103 Fahrenheit, heart rate 130/min which may be related to febrile state versus delirium tremens. He is confused, lethargic and tremulous. He is being moved to the ICU for initiation of Precedex infusion. Additionally interim development of coarse crackles on examination. I am concerned that the patient may have aspirated now that he is lethargic. Check stat chest x-ray. ABG showing worsening hypoxia today. Additionally CT of the chest to assess for possible PE given elevated D-dimer screen. Start antibiotic coverage with piperacillin/tazobactam and vancomycin. Check MRSA nares. Sputum culture and Gram stain if able to expectorate. Continue diuresis with Lasix 20 mg every 24 hours. Change albuterol to Xopenex to minimize contribution to tachycardia. Increase librium 50 mg every 6 hrs. Continue tamiflu. September On precedex 0.1 this morning, lethargic but able to follow all commands today, remains on Bipap this morning. Plan to continue precedex for delirium tremens, continue librium 50mg q6h, to taper next 24 hrs if improving. Attenpt to wean off bipap today. CTa chest without signs of PE or consolidation. Continue NPO as concerned for aspiration. Continue Zosyn. continue tamiflu . blood cx pending. D/c vanc if blood cx remains negative at 48 hrs October 03, 2024 CIWA still 10, however clinically much better. Less tremulous, able to follow directions and commands. Breathing is comfortable. Currently on 3 L/min supplemental O2. D4 Tamiflu today, will complete 5-day course tomorrow. Continue empiric antibiotic coverage with piperacillin/tazobactam and vancomycin. He has been afebrile for over 24 hours at this point. Blood cultures remaining negative to date. Kidney function stable. Discontinue Precedex and closely monitor. Transfer out of ICU if able to remain calm and cooperative off Precedex today. Continue Librium 50 mg p.o., taper down to every 8 hours today. Continue as needed Ativan per CIWA score. October 04, 2024 Patient is clinically doing better today. He is able to answer all orientation questions correctly however still remains very lethargic. He is following all commands. Breathing is comfortable. Remains on 3 L/min supplemental O2. Completing day 5 of Tamiflu today. Continuing empiric antibiotics Zosyn and vancomycin as he had fever of 101 Fahrenheit overnight. Would have expected fever from influenza to be improving by now. CT of the chest did not show any obvious pneumonia though highly suspected him to have had an aspiration event. Blood cultures are negative to date. Check urine analysis. Patient had 1 episode of diarrhea today, complaining of some abdominal discomfort, check CT of the abdomen and pelvis to assess for potential diverticulitis or colitis. Check C. difficile PCR from stool. Reduce Librium to 25 mg p.o. every 8 hours as may be contributing to patient's current lethargy. Continue as needed Ativan per CIWA score. Discontinue Munoz catheter today. 10/05/2024 Patient is following commands and is alert oriented x 3. Comfortably breathing on 5L nasal cannula at this time. Tamiflu has been completed at day 5. He is having intermittent fevers. CT chest did not show any obvious pneumonia. CT abdomen pelvis and CT head is pending at this time. Munoz catheter discontinued yesterday. Will check PT OT. PDMP PDMP Reviewed: Not Reviewed Attestations 2 Medical Necessity Statement*: alcohol withdrawal, influenza, persisting fever, need for ongoing IV antibiotics Diagnoses Influenza A J10.1 Acute hypoxemic respiratory failure J96.01 Sepsis A41.9 Delirium tremens F10.931
[2024-10-05] MEDS: potassium chloride ER 20 mEq Tablet 40 MEQ PO ×2 (12:39→16:53)
[2024-10-05] MEDS: FUROsemide 10 mg/mL SDV 4mL 40 MG IVP ×2 (12:39→18:35)
--- NOTE | 2024-10-05 13:24 | PC.NURSE ---
This nurse as well a RICHARD Amanda rounded on pt at 1315 to administer 1400 dose of Zosyn and insert spring. Pt stated he was finding it hard to breath. O2 obtained by GREGORIA Recinos and O2 was at 86% on 4L NC. This nurse got RT Eloise to place pt on Bipap. Pt was also placed on continuous pulse ox. Dr Nesbitt notified via voalte at 1329.
--- NOTE | 2024-10-05 17:01 | CT_ITS ---
WS: [id number] CT ABDOMEN PELVIS TECHNIQUE: Noncontrast CT of the abdomen and pelvis with coronal and sagittal reformatted images. CLINICAL INFORMATION: febrile COMPARISON: None. DLP: 548.[address] scans at [facility] use at least one of these dose optimization techniques: automated exposure control; mA and/or kV adjustment per patient size (includes targeted exams where dose is matched to clinical indication); or iterative reconstruction. FINDINGS: Advanced chronic emphysematous changes at the lung bases. Tiny RIGHT greater than LEFT pleural effusions with bibasilar atelectasis. Tiny esophageal hiatal hernia. Noncontrast pancreas is normal. Adrenal glands are normal. Mild hepatomegaly. Normal noncontrast liver and spleen. Normal noncontrast pancreas. Adrenal glands are normal. No hydronephrosis. Normal caliber abdominal aorta. Mild aortic calcification. Urine distended bladder. Enlarged calcified prostate measuring 3.3 cm. Normal sigmoid colon. No evidence of high-grade small or large bowel obstruction. CT/CT abdomen pelvis wo con [id number] IMPRESSION: Images in the upper abdomen are degraded due to respiratory artifac t 1. Trace pleural fluid in the lung bases. 2. Mild hepatomegaly. 3. Small esophageal hiatal hernia. 4. Urine distended bladder with mild enlargement of the prostate. 5. No other acute findings.
--- NOTE | 2024-10-05 17:01 | CT_ITS ---
WS: [id number] CT HEAD TECHNIQUE: Noncontrast CT of the head obtained from the skullbase to the vertex. CLINICAL INFORMATION: lethargy COMPARISON: None. DLP: 1126.[address] scans at [facility] use at least one of these dose optimization techniques: automated exposure control; mA and/or kV adjustment per patient size (includes targeted exams where dose is matched to clinical indication); or iterative reconstruction. FINDINGS: No evidence of intracranial hemorrhage or mass effect. Ventricular system and basal cisterns are patent. Mild small vessel changes with mild parenchymal volume loss. No extra-axial fluid collections. No evidence of mass or mass effect. Normal mohan-white differentiation. Paranasal sinuses and mastoid air cells are well aerated. .Normal visualized soft tissues. CT/CT head wo con* [id number] IMPRESSION: 1. No evidence of intracranial hemorrhage or mass effect. 2. No acute intracranial findings.
--- NOTE | 2024-10-05 17:47 | XRR_ITS ---
PROCEDURE INFORMATION: Exam: XR Chest Exam date and time: 10/05/2024 6:17 PM Age: 64 years old Clinical indication: Shortness of breath; Additional info: Tachypnic, SOB, coarse TECHNIQUE: Imaging protocol: Radiologic exam of the chest. Views: 1 view. COMPARISON: CT angio chest PE protcl [id number] 10/01/2024 3:40 PM FINDINGS: Lungs: Questionable retrocardiac infiltrative process. No focal consolidation. Pleural spaces: Unremarkable. No pleural effusion. No pneumothorax. Heart/Mediastinum: Unremarkable. No cardiomegaly. Bones/joints: Unremarkable. XR/XR chest 1V portable [id number] IMPRESSION: Questionable retrocardiac infiltrative process without focal consolidation. Correlate clinically.
--- NOTE | 2024-10-05 17:49 | PC.NURSE ---
Pt continues to be tachypnic with respirations at 28 and HR anywhere between 112-120 despite being placed on bipap. Respiratory to bedside several times today to adjust settings as pt keeps desatting to low 80's, currently saturating at 83%. This nurse called Dr. Nesbitt to inform her of pt status. New verbal orders given by Dr. Nesbitt for a STAT Chest xray, ABG's and 40mg IVP lasix.
[2024-10-05 18:07] LABS: ABG PCO2 35.2 mmHg (35-45); ABG PH Result 7.41 (7.35-7.45); Arterial Blood Gas Hematocrit 48.7 % (42-52); Base Excess ABG -1.5 mmol/L (-2.0-2.0); Blood Gas Allen Test Pos; Blood Gas Operator Identificat glc; Blood Gas Sample Site Radial, right; Blood Gas Sample Type Arterial; Carboxyhemoglobin 0.9 %THgb (0.4-20.1); HCO3 ABG 22.5 mmol/L (22-26); HGB O2 Sat 90.5 % (95-100); Ionized Calcium Level - ABG 1.2 mmol/L (1.1-1.4); Methemoglobin 0.9 % (0.4-1.5); Oxygen Device BIPAP; Oxygen Saturation ABG 92.1; PO2 ABG 60.1 mmHg (80.0-100.0); PO2 FiO2 Ratio Arterial Blood 92; Potassium Level - ABG 3.6 mmol/L (3.5-5.0); Total Hemoglobin 15.9 g/dL (14-18)
--- NOTE | 2024-10-05 19:08 | PC.NURSE ---
This nurse gave report to CHAY Bishop in ICU at 1908. Pt to be taken to ICU by RICHARD Manuel once we get a room number from them.
--- NOTE | 2024-10-05 19:24 | W.PM.EVENTAC ---
Event Note Event Note: We were reported about tachycardia and hypoxia X-ray was repeated, ABG taken, ABG showing relative hypoxia Patient is Abdominal breathing, saturating 94% at the time of evaluation BiPAP settings FiO2 70%, 14 and 8, heart rate is fluctuating between 10 1-1 06 sinus tachycardia Blood pressure 131/84 mmHg, afebrile Transferred to ICU for close monitoring secondary to worsening hypoxia Patient is full code For now patient is able to answer simple questions, follow commands, no indication for intubation at this point Nursing staff notified
[2024-10-05] MEDS: meropenem 1,000 mg SDV 1000 MG IVP (21:52)
[2024-10-05] MEDS: enoxaparin 40 mg/0.4 mL Syringe SUBCUT (21:52)
[2024-10-06] VITALS (63 sets, daily range): BP systolic 99–147; BP diastolic 65–89; PULSE 80–101; RESP 16–38; TEMP 36.3–36.8; O2SAT 83–98
[2024-10-06] MEDS: morphine 4 mg/mL SDV 1 mL 2 MG IVP (02:29)
[2024-10-06] MEDS: levalbuterol 0.63 mg/3 mL Neb INHALATION ×4 (02:57→19:51)
[2024-10-06] MEDS: ipratropium 0.5 mg/2.5 mL Neb INHALATION ×4 (02:57→19:51)
[2024-10-06] MEDS: meropenem 1,000 mg SDV 1000 MG IVP ×3 (04:43→21:00)
[2024-10-06] MEDS: chlordiazePOXIDE 25 mg Capsule PO (04:44)
[2024-10-06] MEDS: FUROsemide 10 mg/mL SDV 4mL 40 MG IVP (05:00)
[2024-10-06 05:33] LABS: Basophils % 0.3 %; Eosinophils # 0.1 10^3/uL (0.0-0.8); Eosinophils % 1.4 %; Hematocrit 44.9 % (37-53); Lymphocytes # 1.5 10^3/uL (0.8-4.8); Lymphocytes % 21.5 %; Mean Corpuscular Hemoglobin 32.5 pg (27-33); Mean Corpuscular Volume 98.7 fl (82-101); Mean Platelet Volume 11.2 fL (7.4-10.4); Monocytes # 0.7 10^3/uL (0.2-0.9); Monocytes % 10.6 %; Neutrophils # 4.57 10^3/uL (1.8-7.7); Neutrophils % 65.5 %; Nucleated Red Blood Cells % 0 %; Platelet Count 167 10^3/cmm (157-399); Red Blood Count 4.55 10^6/uL (3.85-5.65); Red Cell Distribution Width 12.9 % (12.1-15.1); White Blood Count 6.98 10^3/uL (3.29-11.43)
[2024-10-06 05:56] LABS: Slide Review Slide Review Perform
[2024-10-06 06:02] LABS: Alanine Aminotransferase 32 U/L (0-41); Albumin Level 3.2 g/dL (3.5-5.2); Alkaline Phosphatase 74 U/L (40-130); Anion Gap 21.3 (5-19); Aspartate Amino Transferase 35 U/L (0-40); Blood Urea Nitrogen 21 mg/dL (8-23); Calcium 8.9 mg/dL (8.5-10.5); Carbon Dioxide 22 mmol/L (22-29); Chloride 101 mmol/L (98-107); Creatinine Clr Calc Pharmacy 79.0704; Globulin 4.1 g/dL (1.3-4.6); Glomerular Filtration Rate 84.4 mL/min (90-130); Glucose 87 mg/dL (65-115); Magnesium 2.3 mg/dL (1.7-2.3); Osmolality Calculated 294 mOsm/kg (285-295); Phosphorus 2.4 mg/dL (2.5-4.5); Potassium 3.3 mmol/L (3.5-5.1); Sodium 141 mmol/L (136-145); Total Bilirubin 0.4 mg/dL (0.15-1.2); Total Protein 7.3 g/dL (6.6-8.7)
[2024-10-06] MEDS: budesonide 0.5 mg/2 mL Neb INHALATION ×2 (08:14→19:51)
[2024-10-06] MEDS: nicotine 21 mg Patch 1 PATCH TRANSDERMA (08:50)
[2024-10-06 09:01] LABS: Glucose Point of Care 99 mg/dL (70-110)
--- NOTE | 2024-10-06 09:11 | PC.SLP ---
Pt is not able to particpate in assessment at this time due to decreased alertness. PAPER MACHINE BACK TENDER will follow-up with the pt later.
--- NOTE | 2024-10-06 12:04 | P.PN_ITS ---
Subjective 2 Subjective: Patient this morning is lethargic and fatigued able to follow commands, MRI head is pending Patient is requiring BiPAP I have asked nurse to take him off BiPAP and give a break to let him eat Heart rate much better this morning Discontinued all benzodiazepines today Vitals/I&O/Wt Last Vital Signs Temp 97.6 F 10/06/24 09:30 Pulse 89 10/06/24 11:30 Resp 21 H 10/06/24 11:30 BP 101/69 10/06/24 11:30 Pulse Ox 96 10/06/24 11:30 O2 Del Method BiPAP 10/06/24 09:30 O2 Flow Rate 4 10/05/24 11:11 FiO2 50 10/06/24 11:30 10/05/24 10/06/24 10/06/24 22:59 06:59 14:59 Intake Total 410 / 710.000 240 / 950.000 Output Total 450 / 775 275 / 275 Balance 410 / 385.000 -210 / 175.000 -275 / -275 Weight last 48 hrs Weight 70.5 kg Weight 71.668 kg Physical Exam 2 Narrative: Patient lethargic and fatigue Able to follow commands I do not see any focal deficit Patient has positive muscle weakness S1, S2 Currently on BiPAP Hemodynamically stable Bilateral breath sounds with rhonchi Urinary Catheter Management: Munoz: Cath Placed During This Visit: yes, but has since been removed by the nurse Reason for Continuing Indwelling Catheter: Accurate Measurement of Urinary Output in Critically Ill Patients Urinary Catheter Date of Insertion: 10/05/24 Urinary Catheter Time of Insertion: 13:45 Date Urinary Catheter Removed: 10/04/24 Time Urinary Catheter Discontinued: 17:15 Data 10/06/24 04:49 10/06/24 04:49 A&P Assessment and plan (1) Delirium tremens: (2) Influenza A: (3) Sepsis: (4) Acute hypoxemic respiratory failure: Plan Patient lethargic and fatigue Discontinue benzodiazepine An MRI is pending Continue thiamine and folic acid Continue meropenem for pneumonia No active sign of withdrawal My concern is related to benzodiazepine related delirium Patient has proximal muscle weakness We will give a break from BiPAP to let him eat Full code Clear liquid diet for now Advance gradually Continue Lasix on daily basis DVT prophylaxis Lovenox Will request respiratory therapist to monitor vital capacity PDMP PDMP Reviewed: Not Reviewed Attestations 2 Medical Necessity Statement*: Continue medical management Diagnoses Delirium tremens F10.931 Influenza A J10.1 Sepsis A41.9 Acute hypoxemic respiratory failure J96.01
[2024-10-06 12:11] LABS: Glucose Point of Care 98 mg/dL (70-110)
--- NOTE | 2024-10-06 13:08 | CT_ITS ---
WS: [id number] CT CERVICAL SPINE TECHNIQUE: Noncontrast CT of the cervical spine with coronal and sagittal reformatted images. CLINICAL INFORMATION: Altered mental status COMPARISON: None. DLP: 188.[address] scans at [facility] use at least one of these dose optimization techniques: automated exposure control; mA and/or kV adjustment per patient size (includes targeted exams where dose is matched to clinical indication); or iterative reconstruction. FINDINGS: Straightening of the normal cervical lordosis. Moderate spondylitic changes. Disc narrowing worse at C5-6 and C6-7. Slight retrolisthesis C5 on C6. Slight anterolisthesis C3 on C4. C2-C3: Mild disc osteophyte complex. Moderate facet arthropathy. Mild RIGHT and no significant LEFT foraminal narrowing. C3-C4: Slight anterolisthesis. Tiny central protrusion. Mild central canal stenosis. Mild RIGHT greater than LEFT bony foraminal narrowing. Moderate RIGHT facet arthropathy. C4-C5: Tiny central protrusion. Mild LEFT and no significant RIGHT foraminal narrowing. Mild central canal stenosis. Mild facet arthropathy. C5-C6: Slight retrolisthesis. Disc osteophyte complex eccentric to the RIGHT with slight indentation on the RIGHT ventral cervical cord. Mild central canal stenosis. Mild bilateral bony foraminal narrowing. Moderate facet arthropathy. C6-C7: RIGHT eccentric disc osteophyte ridging. Moderate RIGHT bony foraminal narrowing. Spinal canal is patent. Uncovertebral joint hypertrophy. C7-T1: No significant disc bulging. Spinal canal and foramen are patent. Visualized posterior nasopharynx: Normal. Prevertebral soft tissues: Normal. CT/CT cervical spin wo con* [id number] IMPRESSION: 1. Moderate spondylitic changes. Straightening of the normal cervical lordosis . 2. Mild central canal stenosis C3-C4, C4-C5, C5-C6 and C6-C7. 3. Moderate RIGHT C6-7 bony foraminal narrowing. 4. Otherwise mild bony foraminal narrowing worse at RIGHT C3-C4, bilateral C5- C6 worse on the RIGHT,
[2024-10-06] MEDS: glucagon 1 mg/mL KIT 1 mL IM (13:14)
--- NOTE | 2024-10-06 13:18 | P.CONIM_ITS ---
Providers/Reason For Consult 2 Consulting Physician/Specialty*: Antonio Manning MD neurology and epilepsy Reason for Consult*: Generalized weakness and decreased respiratory function requiring BiPAP and patient with history of alcohol abuse and delirium tremens and acute hypoxemia Attending Physician: Eliot Johnson MD History of Present Illness History of Present Illness Jean Chambers is a 64 year old male with a history of alcohol abuse patient admitted with acute hypoxemia. Patient also has history of delirium tremens. Patient was observed to have generalized weakness with respiratory difficulty and weak accessory muscles. Patient currently on BiPAP. Neurology consult was obtained to assist in the patient's care. Noncontrast head CT 10/05/2024 unrevealing. Metabolic lab on 10/06/2024 revealed decreased potassium 3.3 and slightly decreased phosphorus 2.4. CBC and other comprehensive metabolic panel was essentially unrevealing. Magnesium was within normal limits Drug allergies: None Current medications: Oral thiamine 100 mg p.o. daily (according to the nurse the patient has not been taking the medication) Meropenem 1000 mg IV every 8 hours Past medical history: Alcohol abuse Delirium tremens Sepsis Influenza A Acute hypoxic respiratory failure Past medications: Potassium chloride 40 mEq p.o. x 1 dose Librium 25 mg p.o. every 8 hours, discontinued Ativan 2 mg p.o. every 8 hours, discontinued Habits: Patient has history of alcohol abuse Family history: Unable to obtain due to patient's medical illness Review of Systems 2 General: Reports: 10 or more systems reviewed and unremarkable except in HPI and below Resp: Reports: dyspnea Musc: Reports: neck pain, back pain and muscle weakness Medications/Allergies Home Medications ?Medication ?Instructions ?Recorded ?Confirmed ?Last Taken ?Type No Known Home Medications 09/30/2401/17 Unknown History Allergies Allergy/AdvReac Type Severity Reaction Status Date / Time No Known Allergies Allergy Verified 09/29/24 17:39 Current Medications Generic Name Dose Route Start Last Admin Trade Name Freq PRN Reason Stop Dose Admin Acetaminophen 500 mg 09/29/24 21:05 10/04/24 18:38 Acetaminophen 500 Mg Tablet PO 500 mg Q4H PRN Administration fever Budesonide 0.5 mg 09/30/24 08:00 10/06/24 08:14 Budesonide 0.5 Mg/2 Ml Neb INHALATION 0.5 mg BID.RESPIRATORY ARPITA Administration Enoxaparin Sodium 40 mg 09/29/24 21:15 10/05/24 21:52 Enoxaparin 40 Mg/0.4 Ml Syringe SUBCUT 40 mg Q24H ARPITA Administration Folic Acid 1 mg 09/30/24 09:00 10/06/24 08:49 Folic Acid 1 Mg Tablet PO Not Given DAILY ARPITA Furosemide 40 mg 10/06/24 06:00 10/06/24 05:00 Furosemide 10 Mg/Ml Sdv 4ml IVP 40 mg Q24H ARPITA Administration Ipratropium [place] 0.5 mg 10/01/24 14:00 10/06/24 13:11 Ipratropium 0.5 Mg/2.5 Ml Neb INHALATION 0.5 mg Q6H.RESP ARPITA Administration Ketorolac Tromethamine 15 mg 10/01/24 18:53 10/01/24 21:25 Ketorolac 30 Mg/Ml Inj IVP 10/06/24 18:59 15 mg Q6H PRN Administration FEVER Levalbuterol HCl 0.63 mg 10/01/24 14:00 10/06/24 13:11 Levalbuterol 0.63 Mg/3 Ml Neb INHALATION 0.63 mg Q6H.RESP ARPITA Administration Meropenem 1,000 mg 10/05/24 21:30 10/06/24 04:43 Meropenem 1,000 Mg Sdv IVP 1,000 mg Q8H ARPITA Administration Protocol Multivitamins Therapeutic 1 tab 09/30/24 09:00 10/06/24 08:49 Multivitamin Therapeutic Tablet PO Not Given DAILY RAPITA Nicotine 1 patch 09/30/24 09:00 10/06/24 08:50 Nicotine 21 Mg Patch TRANSDERMA 1 patch DAILY ARPITA Administration Thiamine Mononitrate 100 mg 09/30/24 09:00 10/06/24 08:49 Thiamine 100 Mg Tablet PO Not Given DAILY ARPITA PFSH Acute 2 PFSH: Medical History Hypertension Social History Smoking and tobacco/nicotine status: current some day tobacco/nicotine user cigarettes Number of cigarettes per day: >20 Alcohol intake: current Alcohol intake frequency: 3 or more drinks per day Alcohol type: hard liquor Vitals/I&O/Wt Last Vital Signs Temp 97.6 F 10/06/24 09:30 Pulse 87 10/06/24 13:16 Resp 21 H 10/06/24 13:10 BP 101/69 10/06/24 11:30 Pulse Ox 98 10/06/24 13:16 O2 Del Method BiPAP 10/06/24 13:10 O2 Flow Rate 4 10/05/24 11:11 FiO2 50 10/06/24 13:16 10/05/24 10/06/24 10/06/24 22:59 06:59 14:59 Intake Total 410 / 710.000 240 / 950.000 Output Total 450 / 775 275 / 275 Balance 410 / 385.000 -210 / 175.000 -275 / -275 Weight last 48 hrs Weight 155 lb 6.814 oz Weight 158 lb Physical Exam 2 Narrative: The patient is alert he is on BiPAP. Patient follows commands. Head atraumatic. Pupils 4 mm round reactive to light and accommodation. Extraocular movements intact. Motor testing grossly nonfocal. Patient able to lift his arms and legs against gravity and against resistance. Deep tendon reflex revealed hyperreflexia 3+ in the upper and lower extremities but more pronounced in the lower extremities. Plantar responses flexor bilaterally. There was no clonus. Sensory exam intact to touch. Throat clear. Lungs patient wearing BiPAP. Extremities were negative for cyanosis Urinary Catheter Management: Munoz: Cath Placed During This Visit: yes, but has since been removed by the nurse Reason for Continuing Indwelling Catheter: Accurate Measurement of Urinary Output in Critically Ill Patients Urinary Catheter Date of Insertion: 10/05/24 Urinary Catheter Time of Insertion: 13:45 Date Urinary Catheter Removed: 10/04/24 Time Urinary Catheter Discontinued: 17:15 Data 10/06/24 04:49 10/06/24 04:49 A&P Assessment and plan (1) Generalized weakness: Impression: 1. 64-year-old male with a history of alcohol abuse and delirium tremens and generalized weakness with weakness of accessory muscles and clinical examination revealing hyperreflexia in the upper and lower extremities but more pronounced in the lower extremities. Note: There was no focal weakness of his extremities. 2. Complaints of neck and back pain Plan: 1. Start IV thiamine 100 mg every 12 hours for history of alcohol abuse 2. Labs for thyroid profile, ammonia level, B12, folate, and vitamin D 3. CT of the cervical spine to assess for spinal stenosis 4. Will recommend obtaining labs for FTA antibody, RPR, HIV and consider Lyme titer if there is any history of tick bites (2) Alcohol abuse: (3) Delirium tremens: (4) Influenza A: (5) Sepsis: PDMP PDMP Reviewed: Not Reviewed Consult Attestations 2 Medical Necessity Statement: The patient was evaluated by neurology for generalized weakness and weakness of accessory muscles for breathing Coding Level of Care Code 18860 Diagnoses Generalized weakness R53.1 Alcohol abuse F10.10 Delirium tremens F10.931 Influenza A J10.1 Sepsis A41.9
[2024-10-06] MEDS: thiamine 100 mg/mL 2mL SDV IVP (13:55)
[2024-10-06 14:05] LABS: Ammonia 15 umol/L (16-60)
[2024-10-06 14:29] LABS: 25 Hydroxy Vitamin D 10 ng/mL (30-100); Thyroid Stimulating Hormone 4.01 uIU/mL (0.27-4.20); Vitamin B12 1755 pg/mL (232-1245)
[2024-10-06 14:33] LABS: Glucose Point of Care 129 mg/dL (70-110)
[2024-10-06 14:54] LABS: T3 Free 1.7 PG/ML (2.0-4.4)
[2024-10-06 15:14] LABS: Folate Level 11.6 ng/mL (4.5-32.2)
[2024-10-06 16:37] LABS: Glucose Point of Care 105 mg/dL (70-110)
--- NOTE | 2024-10-06 17:52 | PC.SLP ---
The patient has not been alert enough to attempt assessment today for STONE POLISHER MACHINE. STONE POLISHER MACHINE will attempt to follow-up with the patient tomorrow.
--- NOTE | 2024-10-06 18:20 | PC.NURSE ---
Glucagon given today when blood sugar was 98. An hour later blood sugar had increased to 129. patient became more alert, was able to ask for and drink a small amount of water and requested to get onto the bedpan. Though mumbled still mumbled, speech became more clear. Will answer name, , and location correctly. After becoming more alert patient was then able to drink his clear liquid diet.
--- NOTE | 2024-10-06 18:22 | PC.NURSE ---
Shift SUmmary: uneventful shift. Though the Patient's mentation is better compared to this morning, he is still lethargic, confused has mumbled speech, and has some variation in mental state where he has some decline. Changed thiamine to IV instead of PO due to impaired ability to take PO meds.
[2024-10-06] MEDS: enoxaparin 40 mg/0.4 mL Syringe SUBCUT (20:59)
[2024-10-07] VITALS (50 sets, daily range): BP systolic 100–165; BP diastolic 55–124; PULSE 74–102; RESP 15–27; TEMP 36.6–37; O2SAT 89–99
[2024-10-07] MEDS: thiamine 100 mg/mL 2mL SDV IVP ×2 (02:01→13:00)
[2024-10-07] MEDS: ipratropium 0.5 mg/2.5 mL Neb INHALATION ×4 (03:22→20:55)
[2024-10-07] MEDS: levalbuterol 0.63 mg/3 mL Neb INHALATION ×4 (03:22→20:55)
[2024-10-07 05:07] LABS: Basophils % 0.4 %; Eosinophils # 0.1 10^3/uL (0.0-0.8); Eosinophils % 1.7 %; Hematocrit 45.1 % (37-53); Lymphocytes # 1.1 10^3/uL (0.8-4.8); Lymphocytes % 16.1 %; Mean Corpuscular HGB Conc 33.7 g/dL (30-55); Mean Corpuscular Hemoglobin 32.9 pg (27-33); Mean Corpuscular Volume 97.6 fl (82-101); Mean Platelet Volume 10.6 fL (7.4-10.4); Monocytes # 0.7 10^3/uL (0.2-0.9); Monocytes % 9.7 %; Neutrophils # 4.95 10^3/uL (1.8-7.7); Neutrophils % 71.4 %; Nucleated Red Blood Cells % 0 %; Platelet Count 186 10^3/cmm (157-399); Red Blood Count 4.62 10^6/uL (3.85-5.65); White Blood Count 6.94 10^3/uL (3.29-11.43)
[2024-10-07 05:26] LABS: Base Excess VBG 1.2 mmol/L (-3.0-3.0); Blood Gas Operator Identificat JDB; Blood Gas Sample Site Not specified; Blood Gas Sample Type Venous; HCO3 VBG 27.6 mmol/L (24-28); Oxygen Device BIPAP; PCO2 VBG 49.1 mmHg (41-51); PO2 VBG 38.3 mmHg (25-40); Venous Blood Gas Hematocrit 47.4 % (42-52); pH VBG 7.36 (7.32-7.42)
[2024-10-07 05:32] LABS: Anion Gap 18.2 (5-19); Blood Urea Nitrogen 25 mg/dL (8-23); Carbon Dioxide 24 mmol/L (22-29); Chloride 102 mmol/L (98-107); Creatinine Clr Calc Pharmacy 79.0704; Glomerular Filtration Rate 84.4 mL/min (90-130); Glucose 91 mg/dL (65-115); Osmolality Calculated 296 mOsm/kg (285-295); Potassium 3.2 mmol/L (3.5-5.1); Sodium 141 mmol/L (136-145)
[2024-10-07] MEDS: meropenem 1,000 mg SDV 1000 MG IVP ×2 (06:11→13:00)
[2024-10-07] MEDS: FUROsemide 10 mg/mL SDV 4mL 40 MG IVP (06:12)
[2024-10-07] MEDS: budesonide 0.5 mg/2 mL Neb INHALATION ×2 (08:07→20:55)
[2024-10-07] MEDS: folic acid 1 mg Tablet PO (08:38)
[2024-10-07] MEDS: nicotine 21 mg Patch 1 PATCH TRANSDERMA (08:38)
[2024-10-07] MEDS: multivitamin therapeutic Tablet 1 TAB PO (08:38)
--- NOTE | 2024-10-07 14:09 | PC.NURSE ---
Patient reported pain in their back and stomach. Dr. Johnson was notified and no new orders were received.
--- NOTE | 2024-10-07 14:25 | PM.PN ---
Subjective Subjective: Patient is more is more awake and alert He is not encephalopathic Able to follow commands Complaining of some abdominal pain Had a very small bowel movement today Currently on 4 L nasal cannula Patient was able to eat on his own however still lethargic Head MRI unremarkable Appreciate neurorecommendations Neuro recommended cervical CT scan which is showing degenerative joint disease Vitals/I&O/Wt Last Vital Signs Temp 97.9 F 10/07/24 08:30 Pulse 82 10/07/24 14:00 Resp 23 H 10/07/24 13:00 BP 114/77 10/07/24 13:00 Pulse Ox 95 10/07/24 13:00 O2 Del Method Nasal Cannula 10/07/24 13:00 O2 Flow Rate 4 10/07/24 13:00 FiO2 40 10/07/24 09:34 10/06/24 10/07/24 10/07/24 22:59 06:59 14:59 Intake Total 480 / 480 480 / 960 480 / 480 Output Total 250 / 575 650 / 650 Balance 480 / 155 230 / 385 -170 / -170 Weight last 48 hrs Weight 71 kg Weight 70.5 kg Physical Exam Narrative: Patient lethargic and fatigued however more awake and alert today as compared to yesterday Currently on 4 L Hemodynamically stable Able to protect airway Ate on his own Pleasant and cooperative Lower extremity no edema Abdomen nontender Sluggish bowel sound Able to move his lower extremities I do not appreciate any focal deficits Urinary Catheter Management: Munoz: Cath Placed During This Visit: yes, but has since been removed by the nurse Reason for Continuing Indwelling Catheter: Accurate Measurement of Urinary Output in Critically Ill Patients Urinary Catheter Date of Insertion: 10/05/24 Urinary Catheter Time of Insertion: 13:45 Date Urinary Catheter Removed: 10/04/24 Time Urinary Catheter Discontinued: 17:15 Data 10/07/24 04:44 10/07/24 04:44 Micro: Microbiology 10/01/24 16:16 Blood Culture - Final Blood NO GROWTH AFTER 5 DAYS 10/01/24 16:12 Blood Culture - Final Blood NO GROWTH AFTER 5 DAYS A&P Assessment and plan (1) Delirium tremens: (2) Alcohol abuse: (3) Influenza A: (4) Sepsis: (5) Acute hypoxemic respiratory failure: (6) Generalized weakness: (7) 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 He had several tremors affecting bilateral upper and lower extremities, reported feeling anxious, was sweating. He has been given Ativan per [facility] protocol. Additionally will add Librium as a standing dose. Alcohol level was not checked upon admission. However he reports his last drink was prior to hospital arrival. Initially patient was put on Precedex for his delirium tremens when he was agitated however later he developed significant muscle weakness and lethargy required BiPAP for about 48 hours required ICU transfer for closer monitoring, with discontinuation of Librium and benzodiazepines his mentation improved, he started eating, 10/07 we are requesting PT/OT and speech therapy, MRI head unremarkable for acute stroke Considering his current condition I recommended rehab/SNF but patient is stating that he wants to go home and his kids will take care of him I called his daughter:- Daughter is stating that she she will not be able to take care of her father because she is a single mother with 3 kids she wants us to try applying for medicare, Alcohol-related muscle weakness Off Precedex, off benzodiazepine MRI head unremarkable Cervical spine CT scan recommended by neurology: Showing degenerative joint disease Significant muscle weakness with shallow breathing Required BiPAP for 48 hours Currently on 4 L nasal cannula He does not have any typical presentation of Guillain-Rosen? or ascending paralysis Does not have meningitis or stroke Cervical CT scan showing degenerative joint disease Significant muscle wasting secondary to poor caloric intake and alcoholism doing physical therapy and Occupational Therapy today. Lets see how he does As per speech therapy advance diet today to level 4 with regular liquid Full code IV antibiotic switched to p.o. 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
[2024-10-07] MEDS: lactulose oral liq 20 gm/30 mL UDC 10 GM PO (16:43)
[2024-10-07] MEDS: amoxicillin-clav 875-125 mg Tablet 1 TAB PO (17:04)
--- NOTE | 2024-10-07 19:58 | PC.NURSE ---
Report called to med surg for transfer out of ICU
--- NOTE | 2024-10-07 20:45 | PC.NURSE ---
Patient transported to [facility] surg at this time
[2024-10-07] MEDS: enoxaparin 40 mg/0.4 mL Syringe SUBCUT (21:04)
--- NOTE | 2024-10-07 21:23 | MR_ITS ---
WS: [id number] MRI BRAIN WITHOUT CONTRAST HISTORY: r/o stroke, pt lethargic since admission COMPARISON: CT 10/05/2024 TECHNIQUE: Diffusion imaging, multiplanar T1, T2 and FLAIR imaging obtained. No evidence for acute infarct or hemorrhage. Mon-white matter differentiation is normal. No acute infarct. There are scattered T2 and FLAIR signal hyperintensities in subcortical white matter and around the occipital horn of the LEFT lateral ventricle. Most typical for small vessel disease. No lacunar infarcts. Only mild cerebral volume loss. Mild cerebellar and hippocampal atrophy. Ventricles and extra-axial spaces are normal. Normal flow voids. No inferior displacement of cerebellar tonsils. The sella turcica and pituitary gland are unremarkable. Dural venous sinuses and [place] of [place] demonstrate no abnormality on this unenhanced studies. Paranasal sinuses: Clear. Mastoid air cells: Normal. Calvarium and scalp: Intact. MR/MR head wo con* [id number] IMPRESSION: 1. Normal diffusion imaging. No acute infarct or hemorrhage. 2. No large territory infarct. Mild small vessel ischemic disease. 3. Normal ventricles. 4. Mild cerebral, cerebellar atrophy and hippocampal atrophy.
[2024-10-08] VITALS (19 sets, daily range): BP systolic 102–148; BP diastolic 66–77; PULSE 83–102; RESP 14–21; TEMP 36.5–37; O2SAT 91–97
[2024-10-08] MEDS: thiamine 100 mg/mL 2mL SDV IVP ×3 (00:50→23:57)
[2024-10-08] MEDS: ipratropium 0.5 mg/2.5 mL Neb INHALATION ×4 (02:58→19:32)
[2024-10-08] MEDS: levalbuterol 0.63 mg/3 mL Neb INHALATION ×4 (02:58→19:32)
[2024-10-08 06:25] LABS: Anion Gap 17.9 (5-19); Blood Urea Nitrogen 23 mg/dL (8-23); Calcium 9.1 mg/dL (8.5-10.5); Carbon Dioxide 24 mmol/L (22-29); Chloride 101 mmol/L (98-107); Glomerular Filtration Rate 84.4 mL/min (90-130); Glucose 113 mg/dL (65-115); Osmolality Calculated 294 mOsm/kg (285-295); Sodium 140 mmol/L (136-145)
[2024-10-08 06:44] LABS: Potassium 2.9 mmol/L (3.5-5.1)
[2024-10-08] MEDS: potassium chloride ER 20 mEq Tablet 40 MEQ PO ×4 (06:56→23:52)
[2024-10-08 07:20] LABS: Basophils % 0.3 %; Eosinophils # 0.1 10^3/uL (0.0-0.8); Eosinophils % 1.5 %; Hematocrit 44.7 % (37-53); Lymphocytes # 1.2 10^3/uL (0.8-4.8); Lymphocytes % 19.6 %; Mean Corpuscular HGB Conc 34.2 g/dL (30-55); Mean Corpuscular Hemoglobin 32.5 pg (27-33); Mean Corpuscular Volume 94.9 fl (82-101); Mean Platelet Volume 11.1 fL (7.4-10.4); Monocytes # 0.7 10^3/uL (0.2-0.9); Monocytes % 11.8 %; Neutrophils # 4.05 10^3/uL (1.8-7.7); Neutrophils % 66.1 %; Nucleated Red Blood Cells % 0 %; Platelet Count 249 10^3/cmm (157-399); Red Blood Count 4.71 10^6/uL (3.85-5.65); Red Cell Distribution Width 12.7 % (12.1-15.1); White Blood Count 6.12 10^3/uL (3.29-11.43)
[2024-10-08] MEDS: budesonide 0.5 mg/2 mL Neb INHALATION ×2 (07:34→19:32)
[2024-10-08] MEDS: folic acid 1 mg Tablet PO (07:59)
[2024-10-08] MEDS: amoxicillin-clav 875-125 mg Tablet 1 TAB PO ×2 (07:59→18:31)
[2024-10-08] MEDS: multivitamin therapeutic Tablet 1 TAB PO (07:59)
[2024-10-08] MEDS: nicotine 21 mg Patch 1 PATCH TRANSDERMA (07:59)
[2024-10-08] MEDS: potassium phosphate (mMol PO4) 15 MMOL in sodium chloride 0.9% (100 ml) 100 ML 47 MMOL IV (12:21)
--- NOTE | 2024-10-08 14:55 | PC.NURSE ---
Phone rang in patients room and It was a family member asking about an update on Jean. She was not on the patient's family list for medical information, but the patient agreed that it was okay (I also got consent from my clinical instructor beforehand) and I updated her on his condition. Her name is Dinorah Sorensen, phone number [phone].
[2024-10-08] MEDS: TRAMadol 50 mg Tablet PO (14:59)
--- NOTE | 2024-10-08 19:52 | PM.PN ---
Subjective Subjective: 64-year-old male extremely lethargic sitting in a dark room staring blankly but TV is on. Patient's speech is hard to make out but he tells me answers to questions very slowly. He denies pain or specific requests at this time Vitals/I&O/Wt Last Vital Signs Temp 98 F 10/08/24 16:00 Pulse 86 10/08/24 19:39 Resp 17 10/08/24 19:30 BP 118/75 10/08/24 16:00 Pulse Ox 94 10/08/24 19:39 O2 Del Method Nasal Cannula 10/08/24 19:39 O2 Flow Rate 3 10/08/24 19:39 FiO2 40 10/08/24 03:02 10/08/24 10/08/24 10/08/24 06:59 14:59 22:59 Intake Total 120 / 600 325 / 325 Output Total 100 / 950 250 / 250 Balance 20 / -350 325 / 325 -250 / 75 Weight last 48 hrs Weight 73.437 kg Weight 71 kg Physical Exam Narrative: General Well-developed bearded lethargic man in no acute cardiopulmonary distress CV regular rate and rhythm Lungs diffuse crackles improved with deep breaths. He is not able to sit up despite my help. Abdomen positive bowel sounds soft Calves no edema Mentation he is alert to person but tells me is 56 he could not tell me which hospital he is in but knew he was in the hospital he could not tell me the date or the town that were in. I gave him [place] and he could not tell me which hospital. He said something unintelligible regarding which town he lives in. Urinary Catheter Management: Munoz: Cath Placed During This Visit: yes, but has since been removed by the nurse Reason for Continuing Indwelling Catheter: Acute Urinary Retention or Obstruction Urinary Catheter Date of Insertion: 10/05/24 Urinary Catheter Time of Insertion: 13:45 Date Urinary Catheter Removed: 10/04/24 Time Urinary Catheter Discontinued: 17:15 Data 10/08/24 05:23 10/08/24 05:23 A&P Assessment and plan (1) Delirium tremens: Resolved however patient remains lethargic ammonia level was normal Discontinue tramadol (2) Alcohol abuse: Patient will need placement however he is uninsured (3) Influenza A: Resolved Lung crackles will be reevaluated with portable chest x-ray (4) Generalized weakness: Will order CPK and a sed rate consider treatment with modafinil (5) Narcolepsy and cataplexy: Start modafinil 200 mg daily in the morning Plan 64-year-old male with history of chronic alcohol abuse, last drink on day of admission currently admitted to the hospital for influenza A infection and alcohol withdrawal.At the time of this assessment patient was noted to be in amairani alcohol withdrawal. He had several tremors affecting bilateral upper and lower extremities, reported feeling anxious, was sweating. He has been given Ativan per [facility] protocol. Additionally will add Librium as a standing dose. Alcohol level was not checked upon admission. However he reports his last drink was prior to hospital arrival. Initially patient was put on Precedex for his delirium tremens when he was agitated however later he developed significant muscle weakness and lethargy required BiPAP for about 48 hours required ICU transfer for closer monitoring, with discontinuation of Librium and benzodiazepines his mentation improved, he started eating, 10/07 we are requesting PT/OT and speech therapy, MRI head unremarkable for acute stroke Considering his current condition I recommended rehab/SNF but patient is stating that he wants to go home and his kids will take care of him I called his daughter:- Daughter is stating that she she will not be able to take care of her father because she is a single mother with 3 kids she wants us to try applying for medicare, Alcohol-related muscle weakness Off Precedex, off benzodiazepine MRI head unremarkable Cervical spine CT scan recommended by neurology: Showing degenerative joint disease Significant muscle weakness with shallow breathing Required BiPAP for 48 hours Currently on 4 L nasal cannula He does not have any typical presentation of Guillain-Rosen? or ascending paralysis Does not have meningitis or stroke Cervical CT scan showing degenerative joint disease Significant muscle wasting secondary to poor caloric intake and alcoholism doing physical therapy and Occupational Therapy today. Lets see how he does As per speech therapy advance diet today to level 4 with regular liquid Full code IV antibiotic switched to p.o. regimen 10/07 DVT prophylaxis Lovenox Continue thiamine twice daily regimen as per neurology recommendations Constipation: Given lactulose PDMP PDMP Reviewed: Not Reviewed Attestations Medical Necessity Statement*: Patient remains sedated minimally active. Continue with therapy. He is unsafe to go home and needs placement. We have trouble with insurance Coding Level of Care Code 15641 Diagnoses Delirium tremens F10.931 Alcohol abuse F10.10 Influenza A J10.1 Generalized weakness R53.1 Narcolepsy and cataplexy G47.411 Time Spent (min) 55
[2024-10-08] MEDS: enoxaparin 40 mg/0.4 mL Syringe SUBCUT (20:31)
[2024-10-09] VITALS (12 sets, daily range): BP systolic 118–130; BP diastolic 68–88; PULSE 79–107; RESP 16–20; TEMP 36.4–36.7; O2SAT 90–96
[2024-10-09] MEDS: ipratropium 0.5 mg/2.5 mL Neb INHALATION ×4 (02:43→19:33)
[2024-10-09] MEDS: levalbuterol 0.63 mg/3 mL Neb INHALATION ×4 (02:43→19:33)
--- NOTE | 2024-10-09 04:29 | PC.NURSE ---
pt o2 pt was not on his o2 when this nurse began vitals. o2 replaced and o2 was 91%.
[2024-10-09 04:39] LABS: Erythrocyte Sedimentation Rate 47 mm/hr (0-10)
[2024-10-09 05:03] LABS: Anion Gap 17.5 (5-19); Blood Urea Nitrogen 22 mg/dL (8-23); Calcium 9.4 mg/dL (8.5-10.5); Carbon Dioxide 24 mmol/L (22-29); Chloride 108 mmol/L (98-107); Creatinine Clr Calc Pharmacy 65.7916; Glucose 99 mg/dL (65-115); Osmolality Calculated 303 mOsm/kg (285-295); Phosphorus 2.8 mg/dL (2.5-4.5); Potassium 4.5 mmol/L (3.5-5.1); Sodium 145 mmol/L (136-145)
[2024-10-09 05:04] LABS: Creatine Phosphokinase 32 U/L (39-308)
[2024-10-09] MEDS: budesonide 0.5 mg/2 mL Neb INHALATION ×2 (08:57→19:33)
[2024-10-09] MEDS: amoxicillin-clav 875-125 mg Tablet 1 TAB PO ×2 (09:19→18:11)
[2024-10-09] MEDS: multivitamin therapeutic Tablet 1 TAB PO (09:19)
[2024-10-09] MEDS: acetaminophen 500 mg Tablet PO (09:19)
[2024-10-09] MEDS: nicotine 21 mg Patch 1 PATCH TRANSDERMA (09:20)
[2024-10-09] MEDS: folic acid 1 mg Tablet PO (09:20)
[2024-10-09] MEDS: thiamine 100 mg/mL 2mL SDV IVP (13:22)
--- NOTE | 2024-10-09 13:52 | PC.OT ---
OT attempted at this time, patient found sleeping with lights and TV on. Patient doesn't arouse to name or light tapping. Continue OT tx as reported in treatment plan.
--- NOTE | 2024-10-09 18:03 | P.PN_ITS ---
Subjective 2 Subjective: 64-year-old male sitting [facility] reclining chair. He is interacting with staff. Patient more coherent today and indicated that he wanted to get back in bed. Patient states that he lives with his daughter who herself has 2 kids. States he has been living with her for 2 years. I told him that she did not think she could take care of him but he tells me that he wants to go home. He declines to go to assisted facility or inpatient rehab. He states he would like to quit drinking however Patient pulled out his Munoz catheter with balloon inflated earlier and has had some bleeding. Nurses say they are going to watch to see if he can void Medications: Reviewed: Yes Vitals/I&O/Wt Last Vital Signs Temp 97.5 F L 10/09/24 12:00 Pulse 107 H 10/09/24 16:23 Resp 20 H 10/09/24 16:23 BP 130/87 10/09/24 16:23 Pulse Ox 92 10/09/24 16:23 O2 Del Method Nasal Cannula 10/09/24 16:23 O2 Flow Rate 3 10/09/24 02:43 FiO2 40 10/08/24 03:02 10/09/24 10/09/24 10/09/24 06:59 14:59 22:59 Intake Total 480 / 1045 120 / 120 Output Total 150 / 400 Balance 330 / 645 120 / 120 Weight last 48 hrs Weight 71.753 kg Weight 73.437 kg Physical Exam 2 Narrative: General Well-developed bearded lethargic man in no acute cardiopulmonary distress CV regular rate and rhythm Lungs diffuse crackles improved with deep breaths. Air movement is poor Abdomen positive bowel sounds soft Calves no edema Mentation he is alert to person but tells me is 54 he could not tell me which hospital he is in but knew he was in the hospital patient told me that he is in [facility]. He is able to orientate to that he is at [place] Urinary Catheter Management: Munoz: Cath Placed During This Visit: yes, but has since been removed by the nurse Reason for Continuing Indwelling Catheter: Acute Urinary Retention or Obstruction Urinary Catheter Date of Insertion: 10/05/24 Urinary Catheter Time of Insertion: 13:45 Date Urinary Catheter Removed: 10/04/24 Time Urinary Catheter Discontinued: 17:15 Data 10/08/24 05:23 10/09/24 04:06 A&P Assessment and plan (1) Delirium tremens: Resolved however patient remains lethargic ammonia level was normal Discontinued tramadol yesterday Patient is more alert Provigil not yet started but has been ordered (2) Alcohol abuse: Patient will need placement however he is uninsured. Patient thus far refusing placement other than going home (3) Influenza A: Resolved Lung crackles will be reevaluated with portable chest x-ray (4) Generalized weakness: Will order CPK and a sed rate start treatment with modafinil (5) Narcolepsy and cataplexy: Start modafinil 200 mg daily in the morning Plan 64-year-old male with history of chronic alcohol abuse, last drink on day of admission currently admitted to the hospital for influenza A infection and alcohol withdrawal.At the time of this assessment patient was noted to be in amairani alcohol withdrawal. He had several tremors affecting bilateral upper and lower extremities, reported feeling anxious, was sweating. He has been given Ativan per [facility] protocol. Additionally will add Librium as a standing dose. Alcohol level was not checked upon admission. However he reports his last drink was prior to hospital arrival. Initially patient was put on Precedex for his delirium tremens when he was agitated however later he developed significant muscle weakness and lethargy required BiPAP for about 48 hours required ICU transfer for closer monitoring, with discontinuation of Librium and benzodiazepines his mentation improved, he started eating, 10/07 we are requesting PT/OT and speech therapy, MRI head unremarkable for acute stroke Considering his current condition I recommended rehab/SNF but patient is stating that he wants to go home and his kids will take care of him I called his daughter:- Daughter is stating that she she will not be able to take care of her father because she is a single mother with 3 kids she wants us to try applying for medicare, Alcohol-related muscle weakness Off Precedex, off benzodiazepine MRI head unremarkable Cervical spine CT scan recommended by neurology: Showing degenerative joint disease Significant muscle weakness with shallow breathing Required BiPAP for 48 hours Currently on 4 L nasal cannula He does not have any typical presentation of Guillain-Rosen? or ascending paralysis Does not have meningitis or stroke Cervical CT scan showing degenerative joint disease Significant muscle wasting secondary to poor caloric intake and alcoholism doing physical therapy and Occupational Therapy today. Lets see how he does As per speech therapy advance diet today to level 4 with regular liquid Full code IV antibiotic switched to p.o. regimen 10/07 DVT prophylaxis Lovenox Continue thiamine twice daily regimen as per neurology recommendations Constipation: Given lactulose PDMP PDMP Reviewed: Not Reviewed Attestations 2 Medical Necessity Statement*: Patient still needs clarification of discharge. If he is unwilling to go to nursing physical facility will need to determine whether he has a safe discharge Time Spent in Patient Care: 35 Coding Level of Care Code 74861 Diagnoses Delirium tremens F10.931 Alcohol abuse F10.10 Influenza A J10.1 Generalized weakness R53.1 Narcolepsy and cataplexy G47.411 Time Spent (min) 35
--- NOTE | 2024-10-09 18:11 | XRR_ITS ---
PROCEDURE INFORMATION: Exam: XR Chest Exam date and time: 10/09/2024 6:51 PM Age: 64 years old Clinical indication: Other: Lung crackles/ams TECHNIQUE: Imaging protocol: Radiologic exam of the chest. Views: 1 view. COMPARISON: CR (CHEST, ) 10/05/2024 6:17 PM FINDINGS: Lungs: Mild interstitial prominence, stable to slightly worsened compared to prior study. No pulmonary consolidation Pleural spaces: No pleural effusion or pneumothorax. Heart/Mediastinum: Heart size is within normal limits. Vasculature: Atherosclerotic calcifications of the aorta are noted. Bones/joints: No acute osseous abnormalities are seen. XR/XR chest 1V portable [id number] IMPRESSION: Mild interstitial prominence, stable to slightly worsened compared to prior study. Chronic lung change versus edema versus atypical infection.
--- NOTE | 2024-10-09 18:45 | PC.NURSE ---
Patient pulled catheter out balloon intact. Has been up multiple times on his own and has almost fallen. Requested one on one sitter when this was happening and was told no one was available at that time. Continued to increase monitoring. Bed alarm set.
[2024-10-09] MEDS: enoxaparin 40 mg/0.4 mL Syringe SUBCUT (20:12)
[2024-10-10] VITALS (11 sets, daily range): BP systolic 114–145; BP diastolic 75–85; PULSE 71–90; RESP 16–19; TEMP 36.4–36.8; O2SAT 91–96
[2024-10-10] MEDS: thiamine 100 mg/mL 2mL SDV IVP ×2 (00:05→12:41)
[2024-10-10] MEDS: ipratropium 0.5 mg/2.5 mL Neb INHALATION ×4 (02:55→21:08)
[2024-10-10] MEDS: levalbuterol 0.63 mg/3 mL Neb INHALATION ×4 (02:55→21:08)
[2024-10-10 05:47] LABS: Anion Gap 16.9 (5-19); Blood Urea Nitrogen 16 mg/dL (8-23); Calcium 9.3 mg/dL (8.5-10.5); Carbon Dioxide 22 mmol/L (22-29); Chloride 105 mmol/L (98-107); Creatinine Clr Calc Pharmacy 79.8108; Glomerular Filtration Rate 84.4 mL/min (90-130); Glucose 90 mg/dL (65-115); Osmolality Calculated 291 mOsm/kg (285-295); Phosphorus 3.2 mg/dL (2.5-4.5); Potassium 3.9 mmol/L (3.5-5.1); Sodium 140 mmol/L (136-145)
[2024-10-10] MEDS: budesonide 0.5 mg/2 mL Neb INHALATION ×2 (08:27→21:08)
[2024-10-10] MEDS: multivitamin therapeutic Tablet 1 TAB PO (10:54)
[2024-10-10] MEDS: folic acid 1 mg Tablet PO (10:54)
[2024-10-10] MEDS: nicotine 21 mg Patch 1 PATCH TRANSDERMA (10:54)
[2024-10-10] MEDS: amoxicillin-clav 875-125 mg Tablet 1 TAB PO ×2 (10:54→17:24)
[2024-10-10] MEDS: hyDROXYzine 25 mg Capsule PO ×2 (13:36→22:44)
[2024-10-10] MEDS: acetaminophen 500 mg Tablet PO (13:36)
--- NOTE | 2024-10-10 17:35 | P.PN_ITS ---
Subjective 2 Subjective: 64-year-old male sitting [facility] reclining chair. He is interacting with staff. Patient more coherent today and indicated that he wanted to get back in bed. Patient states that he lives with his daughter who herself has 2 kids. States he has been living with her for 2 years. I told him that she did not think she could take care of him but he tells me that he wants to go home. He declines to go to [facility] facility or inpatient rehab. He states he would like to quit drinking however Patient has been voiding his postvoid residual today 66 cc measured by Cayla CARTWRIGHT Medications: Reviewed: Yes Vitals/I&O/Wt Last Vital Signs Temp 98.2 F 10/10/24 15:53 Pulse 86 10/10/24 15:53 Resp 19 H 10/10/24 15:53 BP 142/78 10/10/24 15:53 Pulse Ox 95 10/10/24 15:53 O2 Del Method Nasal Cannula 10/10/24 15:53 O2 Flow Rate 1 10/10/24 13:52 FiO2 40 10/08/24 03:02 10/10/24 10/10/24 10/10/24 06:59 14:59 22:59 Intake Total 240 / 240 Balance 240 / 240 Weight last 48 hrs Weight 72.121 kg Weight 71.753 kg Physical Exam 2 Narrative: General Well-developed bearded lethargic man in no acute cardiopulmonary distress CV regular rate and rhythm Lungs diffuse crackles improved with deep breaths. Air movement is poor Abdomen positive bowel sounds soft Calves no edema Mentation patient is sleeping but awakens and tells me that he is in [place] Urinary Catheter Management: Munoz: Cath Placed During This Visit: yes, but has since been removed by the nurse Reason for Continuing Indwelling Catheter: Acute Urinary Retention or Obstruction Urinary Catheter Date of Insertion: 10/05/24 Urinary Catheter Time of Insertion: 13:45 Date Urinary Catheter Removed: 10/04/24 Time Urinary Catheter Discontinued: 17:15 Data 10/08/24 05:23 10/10/24 04:45 A&P Assessment and plan (1) Delirium tremens: Provisional could not be given here. He is more awake but is a disposition problem as he has not been accepted at facility and his daughter has 2 or 3 children at home and unable to care for him (2) Alcohol abuse: Patient will need placement however he is uninsured. Patient thus far refusing placement other than going home (3) Influenza A: Resolved Chest x-ray is clear 10/09/2019 (4) Generalized weakness: CPK 32 and a sed rate 47 Unable to start treatment with modafinil and patient (5) Narcolepsy and cataplexy: Nonformulary and unable to be started PDMP PDMP Reviewed: Not Reviewed Attestations 2 Medical Necessity Statement*: Patient unable to be safely placed in facility without insurance coverage and his daughter is unable to take care of him at home Coding Level of Care Code 53064 Diagnoses Delirium tremens F10.931 Alcohol abuse F10.10 Influenza A J10.1 Generalized weakness R53.1 Narcolepsy and cataplexy G47.411 Time Spent (min) 25
[2024-10-10] MEDS: trazodone 50 mg Tablet 25 MG PO (20:19)
[2024-10-10] MEDS: enoxaparin 40 mg/0.4 mL Syringe SUBCUT (20:19)
[2024-10-11] VITALS (12 sets, daily range): BP systolic 98–143; BP diastolic 61–90; PULSE 73–95; RESP 15–20; TEMP 36.4–36.8; O2SAT 91–98
[2024-10-11] MEDS: thiamine 100 mg/mL 2mL SDV IVP ×2 (00:18→13:49)
[2024-10-11] MEDS: ipratropium 0.5 mg/2.5 mL Neb INHALATION ×4 (03:17→21:35)
[2024-10-11] MEDS: levalbuterol 0.63 mg/3 mL Neb INHALATION ×4 (03:17→21:35)
[2024-10-11] MEDS: budesonide 0.5 mg/2 mL Neb INHALATION ×2 (07:24→21:34)
[2024-10-11] MEDS: amoxicillin-clav 875-125 mg Tablet 1 TAB PO ×2 (09:38→18:06)
[2024-10-11] MEDS: multivitamin therapeutic Tablet 1 TAB PO (09:38)
[2024-10-11] MEDS: hyDROXYzine 25 mg Capsule PO (09:38)
[2024-10-11] MEDS: nicotine 21 mg Patch 1 PATCH TRANSDERMA (09:38)
[2024-10-11] MEDS: folic acid 1 mg Tablet PO (09:38)
[2024-10-11 15:20] LABS: C.Diff PCR (Lab) NEGATIVE (Negative)
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
[2024-10-11] MEDS: enoxaparin 40 mg/0.4 mL Syringe SUBCUT (20:44)
[2024-10-11] MEDS: cetylpyridinium Lozenge 1 EACH MUCOUS MEM (23:08)
[2024-10-12] VITALS (12 sets, daily range): BP systolic 93–153; BP diastolic 65–84; PULSE 78–97; RESP 16–20; TEMP 36.5–37.1; O2SAT 91–97; BMI 23.6
[2024-10-12] MEDS: thiamine 100 mg/mL 2mL SDV IVP ×2 (00:03→16:00)
[2024-10-12] MEDS: levalbuterol 0.63 mg/3 mL Neb INHALATION ×4 (02:43→21:19)
[2024-10-12] MEDS: ipratropium 0.5 mg/2.5 mL Neb INHALATION ×4 (02:43→21:19)
[2024-10-12] MEDS: budesonide 0.5 mg/2 mL Neb INHALATION ×2 (07:35→21:20)
[2024-10-12] MEDS: multivitamin therapeutic Tablet 1 TAB PO (08:50)
[2024-10-12] MEDS: amoxicillin-clav 875-125 mg Tablet 1 TAB PO ×2 (08:50→17:22)
[2024-10-12] MEDS: folic acid 1 mg Tablet PO (08:50)
[2024-10-12] MEDS: nicotine 21 mg Patch 1 PATCH TRANSDERMA (08:55)
[2024-10-12] MEDS: cetylpyridinium Lozenge 1 EACH MUCOUS MEM (16:01)
--- NOTE | 2024-10-12 16:04 | P.PN_ITS ---
Subjective 2 Subjective: Patient was seen this morning, he is ambulating with a walker, alert to person, to place, not to time, following all commands, does need a gait belt for help with ambulation, does report generalized weakness no headache no blurry vision no nausea, vomiting he tells me he wants to go home, and potentially to [place] if his daughter cannot take care of him to the care of his close family Vitals/I&O/Wt Last Vital Signs Temp 98.2 F 10/12/24 12:06 Pulse 78 10/12/24 13:05 Resp 18 10/12/24 13:05 BP 125/82 10/12/24 12:06 Pulse Ox 97 10/12/24 13:05 O2 Del Method Nasal Cannula 10/12/24 13:05 O2 Flow Rate 1 10/12/24 13:05 FiO2 40 10/08/24 03:02 10/12/24 10/12/24 10/12/24 06:59 14:59 22:59 Intake Total 240 / 1200 240 / 240 Output Total 300 / 600 100 / 100 Balance -60 / 600 140 / 140 Weight last 48 hrs Weight 70.307 kg Weight 70.261 kg Physical Exam 2 Const: COMMON NORMALS: no acute distress ORIENTATION/CONSCIOUSNESS: Yes awake and Yes oriented to person; not oriented to time Resp: COMMON NORMALS: normal respiratory effort, No retractions, No use of accessory muscles and clear to auscultation bilaterally AUSCULTATION: clear to auscultation bilaterally Cardio: COMMON NORMALS: regular rate, regular rhythm, S1 normal heart sound present and S2 normal heart sound present RATE: regular rate RHYTHM: r egular rhythm HEART SOUNDS: S1 normal heart sound present and S2 normal heart sound present GI: COMMON NORMALS: Normal to inspection, nondistended, normoactive bowel sounds present and non-tender Extremity: COMMON NORMALS: no pedal edema Neuro: SENSORIUM/ORIENTATION: Yes oriented to person and No oriented to time Urinary Catheter Management: Munoz: Cath Placed During This Visit: yes, but has since been removed by the nurse Reason for Continuing Indwelling Catheter: Acute Urinary Retention or Obstruction Urinary Catheter Date of Insertion: 10/05/24 Urinary Catheter Time of Insertion: 13:45 Date Urinary Catheter Removed: 10/04/24 Time Urinary Catheter Discontinued: 17:15 Data 10/08/24 05:23 10/10/24 04:45 A&P Assessment and plan (1) Delirium tremens: Resolved (2) Alcohol abuse: Monitor Patient wants to be discharged home, to the care of his family Liver ultrasound no significant radiologic evidence of liver cirrhosis (3) Influenza A: Resolved (4) Generalized weakness: PT OT (5) Narcolepsy and cataplexy: Plan CT neck CT/CT cervical spin wo con* [id number] IMPRESSION: 1. Moderate spondylitic changes. Straightening of the normal cervical lordosis. 2. Mild central canal stenosis C3-C4, C4-C5, C5-C6 and C6-C7. 3. Moderate RIGHT C6-7 bony foraminal narrowing. 4. Otherwise mild bony foraminal narrowing worse at RIGHT C3-C4, bilateral C5- C6 worse on the RIGHT, Acute hypoxic respiratory failure on 1 L, with smoking history, persistent hypoxia likely related to underlying COPD PDMP PDMP Reviewed: Not Reviewed Attestations 2 Medical Necessity Statement*: Patient requires hospitalization for generalized weakness Diagnoses Delirium tremens F10.931 Alcohol abuse F10.10 Influenza A J10.1 Generalized weakness R53.1 Narcolepsy and cataplexy G47.411
[2024-10-12] MEDS: enoxaparin 40 mg/0.4 mL Syringe SUBCUT (21:08)
[2024-10-13] VITALS (10 sets, daily range): BP systolic 122–153; BP diastolic 58–87; PULSE 72–96; RESP 18–20; TEMP 36.4–36.9; O2SAT 90–94
[2024-10-13] MEDS: thiamine 100 mg/mL 2mL SDV IVP ×2 (00:11→13:05)
[2024-10-13] MEDS: ipratropium 0.5 mg/2.5 mL Neb INHALATION ×4 (01:21→20:56)
[2024-10-13] MEDS: levalbuterol 0.63 mg/3 mL Neb INHALATION ×4 (01:21→20:56)
[2024-10-13] MEDS: amoxicillin-clav 875-125 mg Tablet 1 TAB PO (08:33)
[2024-10-13] MEDS: nicotine 21 mg Patch 1 PATCH TRANSDERMA (08:33)
[2024-10-13] MEDS: multivitamin therapeutic Tablet 1 TAB PO (08:33)
[2024-10-13] MEDS: folic acid 1 mg Tablet PO (08:33)
[2024-10-13] MEDS: budesonide 0.5 mg/2 mL Neb INHALATION ×2 (08:49→20:56)
--- NOTE | 2024-10-13 15:28 | P.PN_ITS ---
Subjective 2 Subjective: Patient was seen this morning, he has no complaints, we discussed issues in terms of his discharge, he tells me he really wants to go home his daughter is currently working on preparing the house for his return, we discussed that if this is not a possibility or else he would go he tells me he has family in [place] however I have discussed with him that they are not able to take care of him at this time, what other options are possible he does not want to go to any assisted facility or rehab facility Vitals/I&O/Wt Last Vital Signs Temp 97.5 F L 10/13/24 11:20 Pulse 87 10/13/24 13:55 Resp 18 10/13/24 13:55 BP 124/58 10/13/24 11:20 Pulse Ox 94 10/13/24 13:55 O2 Del Method Room Air 10/13/24 13:55 O2 Flow Rate 2 10/13/24 08:00 FiO2 40 10/08/24 03:02 10/13/24 10/13/24 10/13/24 06:59 14:59 22:59 Intake Total 880 / 1480 600 / 600 Output Total 220 / 345 Balance 660 / 1135 600 / 600 Weight last 48 hrs Weight 69.4 kg Weight 70.307 kg Physical Exam 2 Const: COMMON NORMALS: no acute distress and patient oriented x3 Resp: COMMON NORMALS: normal respiratory effort, No retractions, No use of accessory muscles and clear to auscultation bilaterally AUSCULTATION: clear to auscultation bilaterally Cardio: COMMON NORMALS: regular rate, regular rhythm, S1 normal heart sound present and S2 normal heart sound present RATE: regular rate RHYTHM: r egular rhythm HEART SOUNDS: S1 normal heart sound present and S2 normal heart sound present GI: COMMON NORMALS: Normal to inspection, nondistended, normoactive bowel sounds present and non-tender Extremity: COMMON NORMALS: no pedal edema Neuro: COMMON NORMALS: patient oriented x3 Psych: COMMON NORMALS: mental status grossly normal Urinary Catheter Management: Munoz: Cath Placed During This Visit: yes, but has since been removed by the nurse Reason for Continuing Indwelling Catheter: Acute Urinary Retention or Obstruction Urinary Catheter Date of Insertion: 10/05/24 Urinary Catheter Time of Insertion: 13:45 Date Urinary Catheter Removed: 02/09/25 Time Urinary Catheter Discontinued: 17:15 Data 10/08/24 05:23 10/10/24 04:45 A&P Assessment and plan (1) Delirium tremens: Resolved (2) Alcohol abuse: Monitor Patient wants to be discharged home, to the care of his family Liver ultrasound no significant radiologic evidence of liver cirrhosis (3) Influenza A: Resolved (4) Generalized weakness: PT OT (5) Narcolepsy and cataplexy: Plan CT neck CT/CT cervical spin wo con* [id number] IMPRESSION: 1. Moderate spondylitic changes. Straightening of the normal cervical lordosis. 2. Mild central canal stenosis C3-C4, C4-C5, C5-C6 and C6-C7. 3. Moderate RIGHT C6-7 bony foraminal narrowing. 4. Otherwise mild bony foraminal narrowing worse at RIGHT C3-C4, bilateral C5- C6 worse on the RIGHT, Acute hypoxic respiratory failure on 1 L, with smoking history, persistent hypoxia likely related to underlying COPD PDMP PDMP Reviewed: Not Reviewed Attestations 2 Medical Necessity Statement*: Patient requires hospitalization for safe discharge Diagnoses Delirium tremens F10.931 Alcohol abuse F10.10 Influenza A J10.1 Generalized weakness R53.1 Narcolepsy and cataplexy G47.411
[2024-10-13] MEDS: enoxaparin 40 mg/0.4 mL Syringe SUBCUT (21:09)
[2024-10-14] VITALS (7 sets, daily range): BP systolic 115–168; BP diastolic 65–86; PULSE 78–94; RESP 16–20; TEMP 36.4–36.7; O2SAT 90–95
[2024-10-14] MEDS: thiamine 100 mg/mL 2mL SDV IVP ×2 (00:10→12:11)
[2024-10-14] MEDS: levalbuterol 0.63 mg/3 mL Neb INHALATION ×3 (02:43→13:41)
[2024-10-14] MEDS: ipratropium 0.5 mg/2.5 mL Neb INHALATION ×3 (02:43→13:41)
[2024-10-14] MEDS: budesonide 0.5 mg/2 mL Neb INHALATION (08:42)
[2024-10-14] MEDS: nicotine 21 mg Patch 1 PATCH TRANSDERMA (09:37)
[2024-10-14] MEDS: multivitamin therapeutic Tablet 1 TAB PO (09:37)
[2024-10-14] MEDS: folic acid 1 mg Tablet PO (09:37)
--- NOTE | 2024-10-14 11:13 | PM.DCS ---
Discharge Providers Date of Admission: 09/29/24 20:13 Date of Discharge: October 14, 2024 Attending Provider at Admission: Eliot Johnson MD Attending Provider at Discharge: Jan Gordon MD Diagnoses at Discharge Discharge Diagnosis (1) Delirium tremens: Status: Resolved (2) Alcohol abuse: Status: Resolved (3) Influenza A: Status: Resolved (4) Generalized weakness: Status: Resolved (5) Narcolepsy and cataplexy: Status: Acute Reason for Visit Reason for Visit: SOB Hospital Course Hospital Course This is a 64-year-old male with no significant past medical history who presents [facility] due to altered mental status This is a 64-year male who was admitted to [facility] for severe alcohol withdrawal, delirium tremens, influenza A, generalized weakness For his alcohol withdrawal, delirium tremens, received inpatient monitoring and intervention, overall clinically improved, will be discharged to shelter facility Alcoholism, managed with IV thiamine for concerns for Warnicke's encephalopathy, will be discharged on p.o. thiamine, strongly encouraged patient to avoid alcohol use For sepsis related to acute hypoxia admitted to influenza, received Tamiflu, sepsis resolved, overall clinically improved For acute hypoxic respiratory failure, likely related to underlying COPD required 1 L on discharge Complaints for neck pain CT neck CT/CT cervical spin wo con* [id number] IMPRESSION: 1. Moderate spondylitic changes. Straightening of the normal cervical lordosis. 2. Mild central canal stenosis C3-C4, C4-C5, C5-C6 and C6-C7. 3. Moderate RIGHT C6-7 bony foraminal narrowing. 4. Otherwise mild bony foraminal narrowing worse at RIGHT C3-C4, bilateral C5-C6 worse on the RIGHT, -Follow-up with primary care provider as outpatient Discharged to shelter facility Discharged on dysphagia level 4 diet, moderately thickened For his deconditioning, history of alcoholism, protein calorie malnutrition, received inpatient physical therapy attempts were made to place him to shelter, however patient has declined shelter placement, discharged to to the care of his daughter. Physical Exam Const: COMMON NORMALS: no acute distress ORIENTATION/CONSCIOUSNESS: Yes awake, Yes oriented to person and Yes oriented to place Resp: COMMON NORMALS: normal respiratory effort, No retractions, No use of accessory muscles and clear to auscultation bilaterally AUSCULTATION: clear to auscultation bilaterally Cardio: COMMON NORMALS: regular rate, regular rhythm, S1 normal heart sound present and S2 normal heart sound present RATE: regular rate RHYTHM: regular rhythm HEART SOUNDS: S1 normal heart sound present and S2 normal heart sound present GI: COMMON NORMALS: Normal to inspection, nondistended, normoactive bowel sounds present and non-tender Extremity: COMMON NORMALS: no pedal edema Neuro: SENSORIUM/ORIENTATION: Yes oriented to person and Yes oriented to place Psych: COMMON NORMALS: mental status grossly normal Urinary Catheter Management: Munoz: Cath Placed During This Visit: yes, but has since been removed by the nurse Reason for Continuing Indwelling Catheter: Acute Urinary Retention or Obstruction Urinary Catheter Date of Insertion: 10/05/24 Urinary Catheter Time of Insertion: 13:45 Date Urinary Catheter Removed: 10/04/24 Time Urinary Catheter Discontinued: 17:15 Discharge Data Studies Completed and Pending Completed Studies During Hospitalization Category Date Time Status CT abdomen pelvis wo con [id number] Urgent Cat Scan 10/05/24 17:[address] cervical spin wo con* [id number] Routine Cat Scan 10/06/24 13:[address] head wo con* [id number] Urgent Cat Scan 10/05/24 17:01 Completed CTA PE [CT angio chest PE protcl [id number]] Routine Cat Scan 10/01/24 14:10 Completed CXRP [XR chest 1V portable [id number]] Routine Exams 10/01/24 12:53 Completed XR chest 1V portable [id number] Routine Exams 10/09/24 18:11 Completed XR chest 1V portable [id number] Stat Exams 09/29/24 17:26 Completed XR chest 1V portable [id number] Stat Exams 10/05/24 17:47 Completed MR head wo con* [id number] Routine MRI 10/07/24 21:23 Completed CV. echo complete* [id number] Routine Ultrasound 09/29/24 21:06 Completed US liver [id number] Routine Ultrasound 09/30/24 12:42 Completed Pending at discharge Category Date Time Status Sputum Culture and Gram Stain Routine Lab 10/01/24 16:29 Uncollected Radiology Impressions Liver Ultrasound 09/30/24 12:42 IMPRESSION: 1. Unremarkable liver. By ultrasound no evidence for cirrhosis. 2. Contracted gallbladder. Probably due to nonfasting state. Chest CTA 10/01/24 14:10 IMPRESSION: 1. No pulmonary embolism. 2. No pneumonia. 3. No mediastinal or hilar adenopathy. Abdomen/Pelvis CT 10/05/24 17:01 IMPRESSION: Images in the upper abdomen are degraded due to respiratory artifact 1. Trace pleural fluid in the lung bases. 2. Mild hepatomegaly. 3. Small esophageal hiatal hernia. 4. Urine distended bladder with mild enlargement of the prostate. 5. No other acute findings. Head CT 10/05/24 17:01 IMPRESSION: 1. No evidence of intracranial hemorrhage or mass effect. 2. No acute intracranial findings. Cervical Spine CT 10/06/24 13:08 IMPRESSION: 1. Moderate spondylitic changes. Straightening of the normal cervical lordosis. 2. Mild central canal stenosis C3-C4, C4-C5, C5-C6 and C6-C7. 3. Moderate RIGHT C6-7 bony foraminal narrowing. 4. Otherwise mild bony foraminal narrowing worse at RIGHT C3-C4, bilateral C5-C6 worse on the RIGHT, Head MRI 10/07/24 21:23 IMPRESSION: 1. Normal diffusion imaging. No acute infarct or hemorrhage. 2. No large territory infarct. Mild small vessel ischemic disease. 3. Normal ventricles. 4. Mild cerebral, cerebellar atrophy and hippocampal atrophy. Chest X-Ray 10/09/24 18:11 IMPRESSION: Mild interstitial prominence, stable to slightly worsened compared to prior study. Chronic lung change versus edema versus atypical infection. Laboratory Results WBC 6.12 10^3/uL (3.29-11.43) 10/08/24 05:23 RBC 4.71 10^6/uL (3.85-5.65) 10/08/24 05:23 Hgb 15.30 g/dL (11.27-16.99) 10/08/24 05:23 Hct 44.7 % (37-53) 10/08/24 05:23 MCV 94.9 fl (82-101) 10/08/24 05:23 MCH 32.5 pg (27-33) 10/08/24 05:23 MCHC 34.2 g/dL (30-55) 10/08/24 05:23 RDW 12.7 % (12.1-15.1) 10/08/24 05:23 Plt Count 249 10^3/cmm (157-399) D 10/08/24 05:23 MPV 11.1 fL (7.4-10.4) H 10/08/24 05:23 Neut % (Auto) 66.1 % 10/08/24 05:23 Lymph % (Auto) 19.6 % 10/08/24 05:23 [place] % (Auto) 11.8 % 10/08/24 05:23 Eos % (Auto) 1.5 % 10/08/24 05:23 Baso % (Auto) 0.3 % 10/08/24 05:23 Neut # (Auto) 4.05 10^3/uL (1.8-7.7) 10/08/24 05:23 Lymph # (Auto) 1.2 10^3/uL (0.8-4.8) 10/08/24 05:23 [place] # (Auto) 0.7 10^3/uL (0.2-0.9) 10/08/24 05:23 Eos # (Auto) 0.1 10^3/uL (0.0-0.8) 10/08/24 05:23 Baso # (Auto) 0.0 10^3/uL (0.0-0.1) 10/08/24 05:23 Nucleated RBC % (auto) 0 % 10/08/24 05:23 Nucleated RBCs # 0.0 /100WBC 10/08/24 05:23 ESR 47 mm/hr (0-10) H 10/09/24 04:06 D-Dimer 1.58 ug/mLFEU (0-0.59) H 09/30/24 15:45 Specimen Type Venous 10/07/24 04:44 Sample Site Not specified 10/07/24 04:44 ABG pH 7.41 (7.35-7.45) 10/05/24 17:59 ABG pCO2 35.2 mmHg (35-45) 10/05/24 17:59 ABG pO2 60.1 mmHg (80.0-100.0) L 10/05/24 17:59 ABG PO2/FiO2 Ratio 92 10/05/24 17:59 ABG HCO3 22.5 mmol/L (22-26) 10/05/24 17:59 ABG O2 Saturation 92.1 10/05/24 17:59 ABG Base Excess -1.5 mmol/L (-2.0-2.0) 10/05/24 17:59 Willam Test N/a 10/07/24 04:44 VBG pH 7.36 (7.32-7.42) 10/07/24 04:44 VBG pCO2 49.1 mmHg (41-51) 10/07/24 04:44 VBG pO2 38.3 mmHg (25-40) 10/07/24 04:44 VBG HCO3 27.6 mmol/L (24-28) 10/07/24 04:44 VBG Base Excess 1.2 mmol/L (-3.0-3.0) 10/07/24 04:44 VBG Hematocrit 47.4 % (42-52) 10/07/24 04:44 A-a O2 Gradient 47.0 mmHg (5-10) H 10/05/24 17:59 Hematocrit 48.7 % (42-52) 10/05/24 17:59 Hgb O2 Saturation 90.5 % (95-100) L 10/05/24 17:59 Carboxyhemoglobin 0.9 %THgb (0.4-20.1) 10/05/24 17:59 Methemoglobin 0.9 % (0.4-1.5) 10/05/24 17:59 Total Hemoglobin 15.9 g/dL (14-18) 10/05/24 17:59 Sodium 140.0 mmol/L (131-143) 10/05/24 17:59 Potassium 3.6 mmol/L (3.5-5.0) 10/05/24 17:59 Glucose 112.0 mg/dL (70-115) 10/05/24 17:59 Ionized Calcium 1.2 mmol/L (1.1-1.4) 10/05/24 17:59 O2 Delivery Device Bipap 10/07/24 04:44 O2 Liters/Min 2.0 % 10/01/24 14:07 FiO2 40.0 % 10/07/24 04:44 [employer] ID [email or web address] 10/07/24 04:44 Sodium 140 mmol/L (136-145) 10/10/24 04:45 Potassium 3.9 mmol/L (3.5-5.1) 10/10/24 04:45 Chloride 105 mmol/L (98-107) 10/10/24 04:45 Carbon Dioxide 22 mmol/L (22-29) 10/10/24 04:45 Anion Gap 16.9 (5-19) 10/10/24 04:45 BUN 16 mg/dL (8-23) 10/10/24 04:45 Creatinine 0.9 mg/dL (0.7-1.2) 10/10/24 04:45 GFR Calculation 84.4 mL/min (90-130) L 10/10/24 04:45 Glucose 90 mg/dL (65-115) 10/10/24 04:45 POC Glucose 105 mg/dL (70-110) 10/06/24 16:21 Estimat Average Glucose 100 09/29/24 17:42 Hemoglobin A1c 5.1 % (4.0-6.0) 09/29/24 17:42 Calculated Osmolality 291 mOsm/kg (285-295) 10/10/24 04:45 Lactic Acid 2.4 mmol/L (0.5-2.2) H 09/29/24 17:42 Lactic Acid (Sepsis) 2.1 mmol/L (0.5-2.2) 09/29/24 21:13 Calcium 9.3 mg/dL (8.5-10.5) 10/10/24 04:45 Phosphorus 3.2 mg/dL (2.5-4.5) 10/10/24 04:45 Magnesium 2.3 mg/dL (1.7-2.3) 10/06/24 04:49 Total Bilirubin 0.4 mg/dL (0.15-1.2) 10/06/24 04:49 AST 35 U/L (0-40) 10/06/24 04:49 ALT 32 U/L (0-41) 10/06/24 04:49 Alkaline Phosphatase 74 U/L (40-130) 10/06/24 04:49 Ammonia 15 umol/L (16-60) L 10/06/24 13:41 Ammonia Cancelled 10/06/24 13:41 Creatine Kinase 32 U/L (39-308) L 10/09/24 04:06 Troponin T Baseline 24 ng/L (0-15) H 09/29/24 17:42 Troponin T 120 Minute 28.68 ng/L (0-15) H 09/29/24 19:53 Delta Troponin T 4.68 ABS# (0-10) 09/29/24 19:53 Troponin T Hi Sens 6Hr 17.10 ng/L (0-15) H 09/29/24 23:40 Troponin T Hi Sens 6Hr Delta -6.90 ng/L (0-12) L 09/29/24 23:40 C-Reactive Protein 63.5 mg/L (0.0-4.9) H 09/30/24 05:22 NT-Pro-B Natriuret Pep 2330 pg/mL (0-125) H 09/29/24 17:42 Total Protein 7.3 g/dL (6.6-8.7) 10/06/24 04:49 Albumin 3.2 g/dL (3.5-5.2) L 10/06/24 04:49 Globulin 4.1 g/dL (1.3-4.6) 10/06/24 04:49 Vitamin B12 1755 pg/mL (232-1245) H 10/06/24 13:41 25-OH Vitamin D Total 10 ng/mL (30-100) L 10/06/24 13:41 Folate 11.6 ng/mL (4.5-32.2) 10/06/24 13:41 Procalcitonin 0.20 ng/mL (0-0.5) 09/29/24 19:53 TSH 4.01 uIU/mL (0.27-4.20) 10/06/24 13:41 Free T4 1.00 ng/dL (0.82-1.77) 10/06/24 13:41 Free T3 1.7 PG/ML (2.0-4.4) L 10/06/24 13:41 Prolactin 15.30 ng/mL (4.0-15.2) H 10/06/24 04:49 Urine Color Yellow (Yellow) 10/04/24 16:30 Urine Appearance Clear (CLEAR) 10/04/24 16:30 Urine pH 5.5 (5-7) 10/04/24 16:30 Ur Specific [place] 1.009 (1.005-1.030) 10/04/24 16:30 Urine Protein Negative (Negative) 10/04/24 16:30 Urine Glucose (UA) Negative (Normal) 10/04/24 16:30 Urine Ketones Trace (Negative) 10/04/24 16:30 Urine Blood 1+ (Negative) A 10/04/24 16:30 Urine Nitrate Negative (Negative) 10/04/24 16:30 Urine Bilirubin Negative (Negative) 10/04/24 16:30 Urine Urobilinogen 0.2 mg/dL (Negative) 10/04/24 16:30 Ur Leukocyte Esterase Negative (Negative) 10/04/24 16:30 Urine RBC 6-10 /hpf (0-2) 10/04/24 16:30 Urine WBC 0-5 /hpf (0-5) 10/04/24 16:30 Ur Squamous Epith Cells 0-5 /hpf (0-5) 10/04/24 16:30 Amorphous Sediment Not Reportable 10/04/24 16:30 Urine Bacteria None seen /hpf (NONE) 10/04/24 16:30 Hyaline Casts 8.26 /lpf 10/04/24 16:30 Nasal MRSA (PCR) Not detected (Negative) 10/01/24 17:30 Vancomycin Trough 18.6 ug/mL (10-15) H 10/05/24 07:02 C. difficile (PCR) Negative (Negative) 10/11/24 13:15 Coronavirus (PCR) Negative (Negative) 09/29/24 18:03 Hepatitis A IgM Ab Non-reactive (Nonreactive) 09/30/24 05:22 Hep Bs Antigen Non-reactive (Nonreactive) 09/30/24 05:22 Hep Bs Antibody < 3.5 (11.5-1000) L 09/30/24 05:22 Hep B Core Total Ab Non-reactive (Nonreactive) 09/30/24 05:22 Hepatitis C Antibody Non-reactive (Nonreactive) 09/30/24 05:22 Influenza A (PCR) Positive (Negative) 09/29/24 18:03 Influenza Type B (PCR) Negative (Negative) 09/29/24 18:03 RSV (PCR) Negative (Negative) 09/29/24 18:03 Vitals Last Vital Signs Temp 97.6 F 10/14/24 08:00 Pulse 81 10/14/24 08:56 Resp 16 10/14/24 08:43 BP 148/86 10/14/24 08:00 Pulse Ox 91 10/14/24 08:43 O2 Del Method Room Air 10/14/24 08:43 O2 Flow Rate 2 10/13/24 08:00 FiO2 40 10/08/24 03:02 Discharge Plan Discharge Patient Disposition: Home Condition: Stable Prescriptions: New multivitamin with folic acid [Thera] 400 mcg Tablet 1 tab PO DAILY 30 Days Qty: 30 0RF thiamine HCl (vitamin B1) 100 mg tablet 100 mg PO DAILY 30 Days Qty: 30 0RF Thick and Easy Powder 1 ea PO TIDWMEAL Qty: 2724 0RF Rx Instructions: please thicken all liquids Discharge Orders: Discharge Order (Routine); Ordered 10/14/24 Ordered By: Jan Gordon Referrals: [facility] [Other] (7 days/week 8am-6pm We have notified your physician's clinic of the need for a follow-up appointment to be scheduled. If you have not heard from them within the next 2 business days, please call them directly. ) [facility] [Outside] (? Follow up as a walk in at [facility], walk in hours are Saturday-Saturday from 7:30AM-3:00PM, first come, first seen. Once you do this assessment you will be referred for appropriate services.) Antonio Manning MD [Physician] - 2 weeks (We have notified your physician's clinic of the need for a follow-up appointment to be scheduled. If you have not heard from them within the next 2 business days, please call them directly. ) Discharge Diet: As Directed Discharge Activity: Resume usual activity Patient Instructions: Thiamine (By mouth), Multivitamins, Adult Formula (By mouth), Opioid Safety Activity Restrictions/Additional Instructions: - Please stop drinking alcohol -Please follow-up with primary care provider -Discharged on dysphagia level 4 diet, moderately thickened hold feeds Discharge Attestations Time Spent in Discharge Care*: greater than 30 min Quality Metrics Clinical Quality Measures [ No reported AMI, CVA or VTE this stay] Coding Level of Care Code 61207 Total time (in minutes) for Discharge: 45 Diagnoses Delirium tremens F10.931 Alcohol abuse F10.10 Influenza A J10.1 Generalized weakness R53.1 Narcolepsy and cataplexy G47.411
== END 2024-10-14 13:45 | disposition skilled nursing facility (03) | DRG 871 ==
LOC: ER 21:05 → MEDSURG 21:06 → ICU 10-01 16:17 → MEDSURG 10-03 16:00 → ICU 10-05 19:36 → MEDSURG 10-07 20:33
PROVIDERS: Internal Medicine; Psychiatry & Neurology Neurology; Student in an Organized Health Care Education/Training Program; Admitting Provider Internal Medicine; Emergency Provider Emergency Medicine; Visit Provider Family Medicine
DX: A41.9 Sepsis, unspecified organism (principal); J96.01 Acute respiratory failure with hypoxia; F10.131 Alcohol abuse with withdrawal delirium; E51.2 Wernicke's encephalopathy; I50.32 Chronic diastolic (congestive) heart failure; E87.20 Acidosis, unspecified; G72.1 Alcoholic myopathy; J10.1 Influenza due to other identified influenza virus with other respiratory manifestations; K70.30 Alcoholic cirrhosis of liver without ascites; G47.411 Narcolepsy with cataplexy; J44.9 Chronic obstructive pulmonary disease, unspecified; R13.10 Dysphagia, unspecified; M54.2 Cervicalgia; I11.0 Hypertensive heart disease with heart failure; F17.210 Nicotine dependence, cigarettes, uncomplicated; I34.0 Nonrheumatic mitral (valve) insufficiency; I27.20 Pulmonary hypertension, unspecified; R19.7 Diarrhea, unspecified
CPT/HCPCS: 36415; 36416; 36600; 51702; 70450; 70551; 71045; 71275; 72125; 74176; 76705; 80048; 80051; 80053; 80202; 81001; 82140; 82306; 82330; 82550; 82607; 82746; 82803; 82805; 82962; 83036; 83605; 83735; 83880; 84100; 84145; 84146; 84439; 84443; 84481; 84484; 85025; 85378; 85651; 86140; 86705; 86706; 86709; 86803; 87040; 87340; 87493; 87637; 92507; 92523; 92526; 92610; 93005; 93306; 94640; 94660; 94664; 96365; 96372; 96374; 96375; 96376; 97110; 97116; 97163; 97165; 97530; 99285; J0131; J0696; J1610; J1650; J1885; J1940; J2060; J2185; J2270; J2543; J2919; J3370; J3372; J3411; J3480; J7030; J7613; J7614; J7626; J7644